=== PATIENT | female | born 2005 | race Caucasian/White ===

== ENCOUNTER 2025-07-31 09:04 | Outpatient (CLI) | payer BC, SELFPAY ==
[2025-07-31 09:43] LABS: Hematocrit 42.1 % (37.0-47.0); Hemoglobin 14.2 g/dL (12.0-15.0)
--- OUTSIDE RECORDS SUMMARY | 2025-07-31 09:43 | XMS_ITS | Encounter Summary ---
Author Organization [facility] Address [address] [place] [address] Care Team Providers Care Rag Room Supervisor Name Role Phone Yunier Mei MD Primary Care Provider [phone] Encounter Details Date Type Department Care Team (Late st Contact Info) Description 07/27/2023 Breakout [employer] Message Enc [facility] Family Medicine - [place] [address] [facility], [address] [place] [address] [place], [facility] Provider Pediatric Covid Vaccine Recommendation Social History Tobacco Use Types Packs/Day Years Used Date Smoking Tobacco: Never Smokeless Tobacco: Never Alcohol Use Standard Drinks/Week Comments Never 0 (1 standard drink = 0.6 oz pur e alcohol) AUDIT-C Answer Date Recorded Q1: How often do you have a drink containing alc ohol? Never 12/10/2020 Average Number of Drinks Not on file 021 Frequency of Binge Drinking Not on file 0402/2021 PHQ-2 Answer Date Recorded Patient Health Questionnaire-2 Score 0 03/16/2023 Comments No Sex and Gender Information Value Date Recorded Sex Assigned at Not on file Legal Sex Female 11:12 PM CDT Gender Identity Not on file Sexual Orientation Not on file documented as of this encounter Plan of Treatment Not on file documented as of this encounter Visit Diagnoses Not on filedocumented in this encounter Additional Health Concerns Assessment Noted Time PHQ-9 Depression Total Score: 0 11/06/19 22 8:03 AM SPECIAL SERVICES COORDINATOR documented as of this encounter Care Teams Rag Room Supervisor Relationship Specialty Start Date End Date Yunier Mei MD [address] [facility] [address] [place], [place] [address] PCP - General FAMILY PRACTICE 03/16/23 documented as of this encounter
--- OUTSIDE RECORDS SUMMARY | 2025-07-31 09:43 | XMS_ITS | Continuity of Care Document ---
Author Organization [facility], [facility] Address [address] [place] [address] Care Team Providers Care Correctional Agency Director Name Role Phone [facility] Primary Care Provider [phone] Assessment No assessment recorded. Plan of Treatment Reminders Order Date Submit Date Provider Last Modified By Organization Details Last Modified Time Details Appointments SURG Diagnosti c Lap 2024 07:30A Kat SPENCER MD Not available Not available Not available SURG POST OP 2024 09:30A Kat SPENCER MD Not available Not available Not available Lab None recorded. Referral None recorded. Procedures None recorded. Surgeries laparosco py, diagnosti c (SURG) 2024 025 [email or web address] [facility], [facility] [address], [address], 06/18/2025 11:14:07 Imaging None recorded. Medication Orders None recorded. Patient TargetsNo targets recorded. Patient InstructionsNo instructions recorded. Reason for Referral None Reported. Results Created Date Observation Date Name Description Value Unit Range Abnormal Flag Note LastModifiedBy Organization Detail LastModifiedTime 06/18/2004/23/2025 US, piper s No observ ation record ed. [email or web address] Not Available 2024 10:13:13 06/18/2004/23/2025 piper KRISHNAN s No observ ation record ed. [email or web address] Not Available 2024 10:14:26 Result Notes None recorded. Problems Name Problem SNOMED Code Status Onset Date Resolution Date Notes Provider Name and Address Organization Details Recorded Time Migraine without aura [id number] Active 022 Nan Ku MD [address], [place], [address], [facility] 2 21:09:01 Problem Notes None recorded. Procedures Surgical History Date Name Laterality Status Provider Name and Address Organization Details Recorded Time 3 IUD Insertion completed ASHLEY Llamas [address], [place], [address], [facility] 09/03/2023 12:28:03 3 Nexplanon Removal completed ASHLEY Llamas [address], [place], [address], [facility] 09/03/2023 12:27:53 3 Nexplanon Insert completed ASHLEY Llamas [address], [place], [address], [facility] 09/09/2022 12:13:42 Imaging Results None recorded. Procedure Notes None recorded. Medical Equipment None Reported. Allergies No known drug allergies Medications Name Sig Start Date Stop Date Status Note LastModified by Organization Details LastModified Time Mirena 21 mcg/24 hr (up to 8 years) 52 mg intrauterin e device Take 1 device by intrauter ine route. 2022 active Not Available Not Available Not Avai lable clindamycin HCl 300 mg capsule TAKE 1 CAPSULE BY MOUTH THREE TIMES A DAY 08/24 completed Not Available Not Available Not Available fluconazole 150 mg tablet TAKE 1 TABLET BY MOUTH NOW, REPEAT IN 7 DAYS 06/18 completed Not Available Not Available Not Available benzonatate 200 mg capsule TAKE 1 CAPSULE BY MOUTH 3 TIMES A DAY UNTIL DIRECTED TO STOP NEEDED. FOR PERSISTEN T COUGH 08/23 completed Not Available Not Available Not Available metronidazo le 500 mg tablet TAKE 1 TABLET BY MOUTH EVERY 12 HOURS FOR 7 DAYS 06/18 completed Not Available Not Available Not Available ofloxacin 0.3 % ear drops INSTILL 4 DROPS IN RIGHT EAR TWICE A DAY X 7 DAYS 08/24 completed Not Available Not Available Not Available benzonatate 100 mg capsule TAKE 1 CAPSULE BY MOUTH 3 TIMES A DAY NEEDED FOR COUGH INSTRUCTE D UNTIL DIRECTED TO STOP 08/23 completed Not Available Not Available Not Available albuterol sulfate HFA 90 mcg/actuati on aerosol inhaler PLEASE SEE ATTACHED FOR DETAILED DIRECTION S 06/18 completed Not Available Not Available Not Available nitrofurant oin monohydrate /macrocryst als 100 mg capsule TAKE 1 CAPSULE BY MOUTH EVERY 12 HOURS FOR 7 DAYS 06/18 completed Not Available Not Available Not Available Lo Loestrin Fe 1 mg-10 mcg (24)/10 mcg (2) tablet Take 1 tablet every day by oral route. 09/09 completed Not Available Not Available Not Available Nexplanon 68 mg subdermal implant Inject 1 implant by subcutane ous route. 06/18 completed Not Available Not Available Not Available Blisovi 24 Fe 1 mg-20 mcg (24)/75 mg (4) tablet Take 1 tablet every day by oral route. active Not Available Not Available No t Available Vitals Date Recorded Body height Body mass index (BMI) Body mass index (BMI) [Percentile] Per age and sex Body weight Systolic And Diastolic Provider Name and Address Organization Details Last Updated DateTime 06/18/2025 152.4 cm 30.1 kg/m2 93 % 01722.2 2 g 132/73 mm[Hg] Smita Pereira [facility] 10:06:42 Social History Question Answer Notes LastModified by Organizat ion Details LastModified Time Tobacco Smoking Status Never Smoker Bethanie Castrejonboris fowler, [facility] 09/03/2023 11:47:59 Are You Blind Or Do You Have Difficulty Seeing? No Information n ot available 08/23/2023 What Is Your Level Of Caffeine Consumption? Occasional [email or web address] Information not available 08/23/2023 In The 14 Days Before Symptom Onset, Have You Had Close Contact With A Laboratory-confirm ed COVID-19 While That Case Was Ill? No [email or web address] Information n ot available 08/23/2023 In The 14 Days Before Symptom Onset, Have You Had Close Contact With A Person Who Is Under Investigation For COVID-19 While That Person Was Ill? No Information not available 08/23/2023 Have You Been To An Area Known To Be High Risk For COVID-19? No [email or web address] Information not available 08/23/2023 Are You Deaf Or Do You Have Serious Difficulty Hearing? No [email or web address] Information not available 08/23/2023 What Type Of Diet Are You Following? REGULAR [email or web address] Information n ot available 08/23/2023 What Is The Highest Grade Or Level Of School You Have Completed Or The Highest Degree You Have Received? VE72830-5 [email or web address] Information not available 08/23/2023 Are There Any Guns Present In Your Home? No [email or web address] Information not available 08/23/2023 Do You Use Protection During Sex? Usually [email or web address] Information not available 08/23/2023 Do You Use Your Seat Belt Or Car Seat Routinely? No [email or web address] Information not available 08/23/2023 Do You Have Smoke And Carbon Monoxide Detectors In Your Home? No [email or web address] Information not available 08/23/2023 Do You Use Sunscreen Routinely? Yes [email or web address] Information not available 08/23/2023 Has Tobacco Cessation Counseling Been Provided? No [email or web address] Information not available 09/03/2023 Have You Used IV Drugs? No [email or web address] Information not available 08/23/2023 Sex: Unknown Functional Status Question Answer Note LastModified by Organizat ion Details LastModified Time Do you use any illicit or recreational drugs? No Information not available 08/24/2022 Do you or have you ever used any other forms of tobacco or nicotine? No Information not available 09/03/2023 What is your level of alcohol consumption? None Information not available 08/24/2022 What is your exercise level? Heavy [email or web address] Information not available 08/23/2023 Mental Status None recorded. Family History Relationship Description Onset Age of this Age Resolved Age Notes LastModified by Organization Details LastModified Time Father No current problems or disability [email or web address] Not available 06/18 10:08:17 Mother No current problems or disability [email or web address] Not available 06/18 10:08:17 Medical History Condition Response Allergies (Food, seasonal, environmental ) Y Other N Breast Cancer N Drug/Latex Allergies/Reactions N Blood Transfusion N Dermatologic Disorders N Lung Disease N Defects or Inherited Disease N Breast Problem N Gestational Diabetes N Hematologic disorders N Anesthesia Complications N History of STI N Deep Vein Thrombosis N Polycystic ovary syndrome N Anxiety Disorder N Autoimmune disease N Arthritis N Infertility N Polyps N Acid Reflux (GERD) N History of abnormal pap N Cancer N Stroke N Varicosities N Neurologic/Epilepsy N Endometriosis N High Cholesterol N Headaches Y Fibromyalgia N Kidney Disease N Heart Problems N Kidney or Bladder Problems N Thyroid Problems N GI Problems N Eating Disorder N Anemia N Art (IVF or FET) N Psychiatric Illness N Ovarian Cancer N Diabetes N Pulmonary (TB, Asthma) N Hepatitis/Liver Disease N No Past Medical History Y Eczema N Urinary Tract Infection N Abuse/Domestic Violence N Asthma Y Trauma/Violence N Depression/ depression N Heart Disease N Pre-Eclampsia N Hypertension N Osteoporosis N Thrombophilias N Gynecological History Statement/Question Response Flow Heavy Date of Last Mammogram Date of LMP 06/06/2025 Was last menstrual period normal Y STIs/STDs N HPV Vaccine Y Duration of Flow (days) 7 Current Control Method IUD Are cycles usually normal N Frequency of Cycle (Q days) Sexually Active? Y Menses Monthly Y Date of DEXA bone scan Age of first menstrual cycle 12 Date of Last Pap Smear Sexual Problems? Y Desired Control Method BCPs LMP Approximate Obstetrics History GPAL:G 0 P 0 0 0 0 Past Encounters Encounter ID Performer Location Encounter Start Date Encounter Closed Date Diagnosis/Indication Diagnosis SNOMED-CT Code Diagnosis ICD10 Code Diagnosis IMO Codes Diagnosis Note [id number] Amandeep Spencer MD [place] [address] [address] 06/18/2025 09:42:47 06/18/2025 13:03:14 Pain in pelvis 91717599 R10.20 10313 This patient is a 20-year-ol d female with pelvic pain and menorrhagi a. She also has some abnormal uterine bleeding. Patient has been on oral contracept aria pills for a prolonged period of time. She discontinu ed those and had an IUD placed. Six months after IUD placement she began having irregular heavy bright red bleeding. She was then started on a low-dose oral contracept aria pills. She now is taking low-dose oral contracept aria pills and has IUD inserted. she has severe pelvic pain. It is sharp. It is located within the pelvis. It does not radiate. It is worse with intercours e. Nothing is palliative . It has become worse over time. It started when she was in her early teens. It was originally just at the time of menses and now is more frequent throughout the menstrual cycle. Spite oral contracept aria pills and IUD the patient has severe menorrhagi a. It may be due to the prolonged use of the IUD. We discussed treatment of pelvic pain and menorrhagi a and abnormal uterine bleeding. I spent over 30 minutes on the patient's care. We are mercedez tolbert discontinu ing all of her contracept ion and observing her menstrual cycle. She has failed medical treatment for the treatment of her pelvic pain. We agreed to move forward with a diagnostic laparoscop y. The patient understand s the procedure. The procedure was described to the patient in great detail. the patient also understand s the risks. The risks were also explained in detail. She understand s that injuries May occur during surgery. She understand s these injuries can result in hospitaliz ation, more surgery, and severe illness. She understand s there is risk of hemorrhage and infection. Abnormal u terine bleeding [id number] 9100 N93.9 [id number] Menometrorrhagia 1130142 08 N92.1 [id number] Health Concerns Section Related Observation LastModified by Organization Detai ls LastModified Time None Recorded Concern Status LastModified by Organization Details LastModified Time None Recorded Payers Encounter Date Sequence Insurance Name Policy Number Policy Dougherty Covered Member ID Dougherty Member ID Guarantor Name 06/18/2025 1 [employer] [id number] Jan Hammonds [id number] Jan Hammonds Notes Date Note Type Note Provider Name and Address Organization Details Recorded Time 06/18/2025 text/html Beer-Pelvic PainReported by Patient This patient is a 20-year-old female with pelvic pain and menorrhagia. She also has some abnormal uterine bleeding. Patient has been on oral contraceptive pills for a prolonged period of time. She discontinued those and had an IUD placed. Six months after IUD placement she began having irregular heavy bright red bleeding. She was then started on a low-dose oral contraceptive pills. She now is taking low-dose oral contraceptive pills and has IUD inserted. she has severe pelvic pain. It is sharp. It is located within the pelvis. It does not radiate. It is worse with intercourse. Nothing is palliative. It has become worse over time. It started when she was in her early teens. It was originally just at the time of menses and now is more frequent throughout the menstrual cycle. Spite oral contraceptive pills and IUD the patient has severe menorrhagia. It may be due to the prolonged use of the IUD. We discussed treatment of pelvic pain and menorrhagia and abnormal uterine bleeding. I spent over 30 minutes on the patient's care. We are considering discontinuing all of her contraception and observing her menstrual cycle. She has failed medical treatment for the treatment of her pelvic pain. We agreed to move forward with a diagnostic laparoscopy. The patient understands the procedure. The procedure was described to the patient in great detail. the patient also understands the risks. The risks were also explained in detail. She understands that injuries May occur during surgery. She understands these injuries can result in hospitalization, more surgery, and severe illness. She understands there is risk of hemorrhage and infection. Amandeep Spencer MD [address], [place], [address], [place] - [facility] 06/18/2025 13:03:06 OBGyn Episode No OBEpisode recorded.
--- OUTSIDE RECORDS SUMMARY | 2025-07-31 09:43 | XMS_ITS | Clinical Summary ---
Author Organization [facility] Address [facility] [place] [address] Care Team Providers Care Game Programer Name Role Phone Yunier Mei MD Primary Care Provider [phone] Allergies No known active allergies Medications fluticasone propionate (FLONASE) 50 MCG/ACT nasal sprayIndication s:Recurrent acute suppurative otitis media without spontaneous rupture of left tympanic membrane 1 spray by Nasal route daily. 16 g 3 4 Active levonorgestrel (MIRENA, 52 MG,) 20 MCG/DAY IUD 1 Intra Uterine Device (20 mcg total) by Intrauterine route once. 3 Active Active Problems No known active problems Resolved Problems Problem Noted Date Diagnosed Date Resolved Date Closed fracture of distal end of radius 06/19/2011 03/04/2023 Immunizations Immunization Administration Dates Next Due Daptacel 02/14/2010,05/17/2006 HPV GARDASIL 9-VALENT 02/20/2020,06/16/2019 Hepatitis A (Generic) 04/08/2012,02/09/2007 Hepatitis B 2005 Hib (Generic) 02/04/2006, 5,2005,04/20 IPV/OPV 02/14/2010 Influenza Adult (Generic) 07/21/2022,07/2021,05/30/2020,06/16 MMR 02/14/2010,02/04/2006 Menactra 03/23/2016 Meningococcal (Menactra) 02/21/2021 PFIZER COVID-19 (ORIGINAL FO RMULATION, PURPLE CAP) mRNA, LNP-S, PF, 30 MCG/0.3 ML DOSE 09/20/2021,02/10/2021,01/20/2021 Pediarix 2005,2005,2005 Pneumococcal (Prevnar 13) 05/17/2006,,2005,04/20 Tdap (Generic) 03/23/2016 Varicella Vaccine 02/14/2010,05/17/2006 Family History Relation Status Comments Father Alive Mother Alive Social History Tobacco Use Types Packs/Day Years Used Date Smoking Tobacco: Never Smokeless Tobacco: Never Tobacco Cessation:Counseling Given: No Alcohol Use Standard Drinks/Week Comments Never 0 (1 standard drink = 0.6 oz pur e alcohol) AUDIT-C Answer Date Recorded Q1: How often do you have a drink containing alc ohol? Never 12/10/2020 Average Number of Drinks Not on file 021 Frequency of Binge Drinking Not on file 02/2021 PHQ-2 Answer Date Recorded Patient Health Questionnaire-2 Score 0 09/14/2023 Comments No Sex and Gender Information Value Date Recorded Sex Assigned at Not on file Legal Sex Female 11:12 PM CDT Gender Identity Not on file Sexual Orientation Not on file Last Filed Vital Signs Vital Sign Reading Time Taken Comments Blood Pressure 110/80 09/14/2023 3:10 PM SEWER SYSTEM SUPERVISOR Pulse 74 09/14/2023 3:10 PM SEWER SYSTEM SUPERVISOR Temperature 36.9 C (98.5 F) 09/14/2023 3:10 PM SEWER SYSTEM SUPERVISOR Respiratory Rate 18 09/14/2023 3:10 PM SEWER SYSTEM SUPERVISOR Oxygen Saturation 98% 09/14/2023 3:10 PM SEWER SYSTEM SUPERVISOR Inhaled Oxygen Concentration - - Weight 62.3 kg (137 lb 4.8 oz) 09/14/2023 3:10 P M SEWER SYSTEM SUPERVISOR Height 153.7 cm (5' 0.5) 03/16/2023 8:33 AM CDT Body Mass Index 26.37 03/16/2023 8:33 AM CDT Plan of Treatment Health Maintenance Due Date Last Done Comments Meningococcal B Vaccine (1 of 2 - Standard) 2021 Hepatitis C 2023 Annual Physical 03/16/2024 03/16/2023 PHQ-2 (Physician Korbel) 09/06/2024 09/14/2023 COVID-19 Vaccine ( season) 2025 09/20/2021, 02/10/2021, 01/20/2021 Influenza Adult (#1) 2025 07/21/2022, 07/17/2021, 05/30/2020, Additional history exists DTaP, Tdap and Td Vaccines (7 - Td or Tdap) 03/23/2026 03/23/2016, 02/14/2010, 05/17/2006, Additional history exists Hepatitis B Vaccines Completed 2005, 2005, 2005, Additional history exists Pneumococcal Vaccine: Pediatrics (0 to 5 Years) and At-Risk Patients (6 to 49 Years) Completed 05/17/2006, 2005, 2005, Additional history exists Hepatitis A Vaccines Completed 04/08/2012, 02/10/20 07 HPV Vaccines Completed 02/20/2020, 06/16/2019 Meningococcal Vaccine Completed 02/21/2021, 016 RSV Immunizations Under 20 Months Aged Out No longer eligible based on patient's age to complete this topic Insurance [employer] [facility] [facility] Care Teams Game Programer Relationship Specialty Start Date End Date Yunier Mei MD [address] [facility] [address] [place] [address] PCP - General FAMILY PRACTICE 03/16/23
--- OUTSIDE RECORDS SUMMARY | 2025-07-31 09:43 | XMS_ITS | Encounter Summary ---
Author Organization [facility] Address [address] [place] [address] Care Team Providers Care Leather Goods Sales Representative Name Role Phone Unavailable Primary Care Provider Unavailabl e Encounter Details Date Type Department Care Team (Late st Contact Info) Description 2005 Outpatient [facility] Hearing Services [facility] [address] [place] [address] Korina Reid AU.D [address] [place] [address] Social History Tobacco Use Types Packs/Day Years Used Date Smoking Tobacco: Never Assessed Comments Unknown Sex and Gender Information Value Date Recorded Sex Assigned at Not on file Legal Sex Female 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
--- OUTSIDE RECORDS SUMMARY | 2025-07-31 09:43 | XMS_ITS | Encounter Summary ---
Author Organization [facility] Address [address] [place] [address] Care Team Providers Care Customer Service Advisor Name Role Phone Unavailable Primary Care Provider Unavailabl e Encounter Details Date Type Department Care Team (Late st Contact Info) Description 2005 Outpatient Historical [facility] Pediatrics - [facility] [address] [address] Carine Crenshaw MD 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
--- OUTSIDE RECORDS SUMMARY | 2025-07-31 09:43 | XMS_ITS | Encounter Summary ---
Author Organization [facility] Address [address] 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 Gender Identity Not on file Sexual Orientation Not on file documented as of this encounter Plan of Treatment Upcoming Encounters Date Type Department Care Team (Late st Contact Info) Description 08/15/2025 9:00 AM PIPED BUTTONHOLE MACHINE OPERATOR Confidential [facility] Behavioral Health [facility] [address] [place] [address] Peyton Garsia, VOCATIONAL NURSING INSTRUCTOR [address] [place] [phone] documented as of this encounter Visit Diagnoses Diagnosis Single liveborn, born in hospital, delivered without mention of delivery- Primary documented in this encounter
--- OUTSIDE RECORDS SUMMARY | 2025-07-31 09:43 | XMS_ITS | Encounter Summary ---
Author Organization [facility] Address [address] [place] [address] Care Team Providers Care Cutter Gas Name Role Phone Unavailable Primary Care Provider Unavailabl e Encounter Details Date Type Department Care Team (Late st Contact Info) Description 2005 Outpatient Historical [facility] Pediatrics - [facility] [address] [facility] [address] [address] Gerald Mcpherson MD NO ADDRESS ON FILE Social History Tobacco Use Types Packs/Day Years Used Date Smoking Tobacco: Never Assessed Comments Unknown Sex and Gender Information Value Date Recorded Sex Assigned at Not on file 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
--- OUTSIDE RECORDS SUMMARY | 2025-07-31 09:44 | XMS_ITS | Clinical Summary ---
Author Organization [facility] Address [address] [place] [address] Care Team Providers Care Mice Raiser Name Role Phone Unavailable Primary Care Provider Unavailabl e Allergies No known active allergies Medications levonorgestreL (Mirena) 21 mcg/24hr (up to 8 yrs) 52 mg IUD 20 mcg by Intrauterine route. 3 Active norethindrn a-e estradiol-iron (Junel FE 09/25, 28,) 1 mg-20 mcg (21)/75 mg (7) tablet Take 1 Tablet by mouth daily. 28 Tablet 12 5 Active Additional Information Patient not taking.Reported on 06/27/2025 hydrOXYzine HCL (ATARAX) 10 mg tabletIndication s:Generalized anxiety disorder,Sleep difficulties Take 1-2 tablets by mouth daily at bedtime as needed for sleep 60 Tablet 1 5 Active Active Problems Problem Noted Date Diagnosed Date Chronic pelvic pain in female 04/24/2025 Irregular menses 04/24/2025 IUD (intrauterine device) in place 04/24/2025 Encounters Date Type Department Care Team Description 06/27/2025 9:00 AM CDT Confidential [facility] Behavioral Health [facility] [address] [place] [address] Peyton Garsia APRN None 06/26/2025 External Device Data STL ABSTRACTION Provider, Abstract 06/26/2025 Telephone [facility] [address] [facility] [address] [place] [address] Kim Martinez MD Surgery 05/30/2025 8:00 AM CDT Confidential [facility] Health [facility] [address] [place] [address] Peyton Garsia APRN None 05/23/2025 Telephone [facility] [place] [address] [place] [address] Surekha Guerra PA laparoscoopy procedure/GARA 05/22/2025 External Device Data STL ABSTRACTION Provider, Abstract from Last 3 Months Family History Medical History Relation Name Comments Breast Cancer Neg Hx Ovarian Cancer Neg Hx Social History Tobacco Use Types Packs/Day Years Used Date Smoking Tobacco: Never Smokeless Tobacco: Never Tobacco Cessation:Counseling Given: Not Answered Alcohol Use Standard Drinks/Week Comments Never 0 (1 standard drink = 0.6 oz pur e alcohol) Feeling Safe Answer Date Recorded Do you worry about feeling s afe and happy with the people in your life? No 04/24/2025 Food Insecurity Answer Date Recorded Do you find you are eating l ess than you should because you can t pay for food? No 04/24/2025 Transportation Needs Answer Date Record ed Have you gone without health care because you didn t have a way to get there? Or worry about transportation for future doctor visits, brass pickler medication, etc.? No 2024 Housing Stability Answer Date Recorded Do you worry you won t have a steady place to sleep or struggle to pay rent or mortgage? No 04/24/2025 Utility Needs Answer Date Recorded Do you have difficulty payin g for utility costs (electric, water or gas bills)? No 04/24/2025 Medication Needs Answer Date Recorded Have you skipped taking medi cation due to cost or worry you can t afford new medications? 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 Gender Identity Not on file Sexual Orientation Not on file Last Filed Vital Signs Vital Sign Reading Time Taken Comments Blood Pressure 124/76 04/24/2025 7:59 AM CDT Pulse 66 12/18/2024 10:33 AM CDT Temperature - - Respiratory Rate - - Oxygen Saturation - - Inhaled Oxygen Concentration - - Weight 67.1 kg (148 lb) 04/24/2025 7:59 AM CDT Height 152.4 cm (5') 04/24/2025 7:59 AM CDT Body Mass Index 28.9 04/24/2025 7:59 AM CDT Plan of Treatment Upcoming Encounters Date Type Department Care Team (Late st Contact Info) Description 08/15/2025 9:00 AM UNDERTAKER ASSISTANT Confidential [facility] Health [facility] [address] [place] [address] Peyton Garsia, SUKH [address] [place] [phone] Health Maintenance Due Date Last Done Comments INFLUENZA VACCINE (#1) 2025 COVID-19 Vaccine ( - 2024-2 6 season) 2025 09/20/2021, 02/10/2021, 01/20/2021 DTAP/TDAP/TD VACCINES (7 - T d or Tdap) 03/23/2026 03/23/2016, 02/14/2010, 05/17/2006, Additional history exists CHLAMYDIA SCREENING (ANNUAL) 11-24 YEARS 04/24/2026 04/24/2025 HEPATITIS B VACCINES Completed 2005, 2005, 2005, Additional history exists HPV VACCINES Completed 02/20/2020, 06/16/2019 Procedures Procedure Name Priority Date/Time Associated Diagnosis Comments VAGINOSIS/VAGINITIS PANEL PLUS Routine 04/24/2025 1:38 PM CDT Encounter for screening for other bacterial disease from Last 3 Months or Most Recently Relevant to Health Maintenance Results * VAGINOSIS/VAGINITIS PANEL PLUS (04/24/2025 1:38 PM CDT) BACTERIAL VAGINOSIS NEGATIVE NEGATIVE [facility] MARILYN SPECIES NOT DETECTED NOT DETECTED [facility] MARILYN GLABRATA NOT DETECTED NOT DETECTED [facility] Comment: Marilyn species C. albicans, C. tropicalis, C. parapsilosis, and/or C. dubliniensis can be detected, but not differentiated, in the Marilyn spp. result. TRICHOMONAS VAGINALIS (TV), TMA NOT DETECTED NOT DETECTED [facility] CHLAMYDIA TRACHOMATIS RNA, TMA, UROGENITAL NOT DETECTED NOT DETECTED [facility] NEISSERIA GONORRHOEAE RNA, TMA, UROGENITAL NOT DETECTED NOT DETECTED [facility] Comment: For additional information, please refer to https://education.Snipd/faq/ZBM313 (This link is being provided for information/ educational purposes only.) Test Performed at: [facility] [id number] [id number] Mac Bradley MD Genital SPECIMEN FROM VAGINA / Unknown 04/24/2025 1:38 PM CDT 04/24/2025 6:24 PM CDT Sure[facility]CRO[facility] - GENERAL ORDERABL ES Final Result [facility] [phone] [facility] [id number] [address] [id number] from Last 3 Months or Most Recently Relevant to Health Maintenance Insurance [facility] BLUE ACCESS CHOICE
--- OUTSIDE RECORDS SUMMARY | 2025-07-31 09:44 | XMS_ITS | Data Portability ---
Author Organization [facility] Address [address] [place] [address] [place] [address] Care Team Providers Care Senior Qa Analyst Name Role Phone A-[facility] PED[facility] Primary Care Provider [phone] Assessment Encounter Date Assessment Date Assessment LastModified by Organization Details LastModified Time 08/24/2022 08/24/2022 Has had HPV vaccine Discussed abstinence, safe sex, contraception, STDs, and . Discussed various forms of contraception including their usage, and risks, benefits, and alternatives. Pt desires nexplanon. Discussed R/B/A of Nexplanon, including procedure for insertion and removal, efficacy, and bleeding profile associated with it. Questions answered. insertion when next on placebo pills. GC CT trich on urine today. [email or web address] Not available 09/04/2022 21:13:36 Plan of Treatment Reminders Order Date Submit Date Provider Last Modified By Organization Details Last Modified Time Details Appointments SURG Diagnos tic Lap 2024 07:30A Kat CASTELLANOS MD Not available Not available Not available SURG POST OP 2024 09:30A Kat CASTELLANOS MD Not available Not available Not available Lab pregnan cy test, urine 2022 023 [email or web address] [facility], [address], [address], [place], [address], 09/03/2023 13:31:15 urinaly sis, dipstic k 2022 023 [email or web address] [address], [address], [place], [address], 08/23/2023 16:17:05 culture , urine 2022 023 [facility] (Lab), [address], [place], [address], 08/26/2023 09:15:41 pregnan cy test, urine 2022 023 [email or web address] [address], [address], [place], [address], 08/23/2023 16:15:41 pregnan cy test, urine 2022 023 [email or web address] [address], [address], [place], [address], 09/09/2022 12:29:09 Referral None recorde d. Procedures None recorde d. Surgeries laparos copy, diagnos tic (SURG) [email or web address] [facility], [address], [place], [address], 06/18/2025 11:14:07 Imaging None recorde d. Medication Orders Mirena 21 mcg/24 hr (up to 8 years) 52 mg intraut erine device 2022 023 [email or web address] [id number], [address], [place], [address], 09/03/2023 13:33:07 metroni dazole 500 mg tablet 2022 023 [email or web address] [id number], [address], [place], [address], 06/18/2025 10:04:44 Nexplan on 68 mg subderm al implant 2022 023 [email or web address] Not available 06/18/2025 10:04:06 Patient TargetsNo targets recorded. Patient Instructions Encounter Date Encounter Id Patient Instructions Last Modified By Organization Details Last Modified Time 09/03/2023 [id number] surgical trays* RASHEED Not available 09/03/2024 05:01:13 Reason for Referral None Reported. Results Created Date Observation Date Name Description Value Unit Range Abnormal Flag Note LastModifiedBy Organization Detail LastModifiedTime 08/24/20 22 08/24/2022 CT/GC AND TRICH OMONA S VAGIN ARACELI (RRNA ), URINE chlamydia trachomatis, PCR Negati ve negati ve Not Available [facility] (Lab) [address], [place], [address], 08/25/2022 13:23:37 08/24/20 22 08/24/2022 CT/GC AND TRICH OMONA S VAGIN ARACELI (RRNA ), URINE neisseria gonorrhoeae, PCR Negati ve negati ve Not Available [facility] (Lab) [address], [place], [address], 08/25/2022 13:23:37 08/24/20 22 08/24/2022 CT/GC AND TRICH OMONA S VAGIN ARACELI (RRNA ), URINE trichomonas vaginalis ribosomal RNA (rrna) Negati ve negati ve Not Available [facility] (Lab) [address], [place], [address], 08/25/2022 13:23:37 09/09/19 23 09/09/2022 pregn diandra test, urine HCG negati ve Not Available [place] [address], [place], [address], 09/09/2022 12:28:44 08/23/20 23 08/23/2023 CT/GC (DARSHAN) , SWAB chlamydia trachomatis, PCR Negati ve negati ve Not Available [facility] (Lab) [address] [place], [address], 08/24/2023 13:51:15 08/23/20 23 08/23/2023 CT/GC (DARSHAN) , SWAB neisseria gonorrhoeae, PCR Negati ve negati ve Not Available [facility] (Lab) [address], [place], [address], 08/24/2023 13:51:15 08/23/20 23 08/23/2023 VAGIN ITIS/ VAGIN OSIS, DNA PROBE afia sp. detection, direct probe Positi ve negati ve abnormal Not Available [facility] (Lab) [address] [place], [address], 08/24/2023 13:51:16 08/23/20 23 08/23/2023 VAGIN ITIS/ VAGIN OSIS, DNA PROBE gardnerella vag. detection, direct probe Positi ve negati ve abnormal Not Available [facility] (Lab) [address], [place], [address], 08/24/2023 13:51:16 08/23/20 23 08/23/2023 VAGIN ITIS/ VAGIN OSIS, DNA PROBE trichomonas vag. detection, direct probe Negati ve negati ve Not Available [facility] (Lab) [address], [place], [address], 08/24/2023 13:51:16 08/23/20 23 08/23/2023 CULTU RE: URINE result report SEE RESULT S BELOW abnormal Test: Cultu re: Urine Speci men Sourc e: Urine Voide d Speci men Type: Urine Speci men Date: 08/23 5:07 PM Resul t Date: 08/26 8:12 AM Resul t Statu s: Final resul t Abnor mal: Yes Loretta mata Lab: [facility] [address] [facility] [address] Tel: CULTU RE ----- ----- ----- --- >100, 000 CFU/m l Esche eber a coli (Abno rmal) ALLISON PTIBI LITY ----- ----- ----- --- Esche eber a coli METHO D BRUCE ----- ----- ----- ----- ----- ---- ----- ----- ----- ----- ----- - AMPIC ILLIN >16 ug/mL Resis tant AMPIC ILLIN /SULB ACTAM 16 ug/mL Inter media te AZTRE ONAM <=4 ug/mL Susce ptibl e CEFAZ MAEGAN <=2 ug/mL Susce ptibl e CEFEP JAMAAL <=2 ug/mL Susce ptibl e CEFOX ITIN <=8 ug/mL Susce ptibl e CEFTA ZIDIM E <=1 ug/mL Susce ptibl e CEFTR IAXON E <=1 ug/mL Susce ptibl e CIPRO FLOXA TYRELL <=0.2 5 ug/mL Susce ptibl e GENTA MICIN <=2 ug/mL Susce ptibl e LEVOF LOXAC IN <=0.5 ug/mL Susce ptibl e MEROP ENEM <=1 ug/mL Susce ptibl e NITRO FURAN TOIN <=32 ug/mL Susce ptibl e PIPER ACILL IN/TA ZOBAC ROGER <=8 ug/mL Susce ptibl e TOBRA MYCIN 4 ug/mL Susce ptibl e TRIME THOPR IM/RESENDIZ LFAME THOXA ZOLE <=0.5 ug/mL Susce ptibl e Not Available [facility] (Lab) [address], [place], [address], 08/26/2023 09:15:41 08/23/20 23 08/23/2023 urina lysis , dipst ick Leukocytes +3 Not Available [facility] vasiliy [address], [place], [address], 08/23/2023 16:16:07 08/23/20 23 08/23/2023 urina lysis , dipst ick Nitrite normal Not Available [facility] [address], [place], [address], 08/23/2023 16:16:07 08/23/20 23 08/23/2023 urina lysis , dipst ick Urobilinogen normal Not Available [facility] lalitha [address], [place], [address], 08/23/2023 16:16:07 08/23/20 23 08/23/2023 urina lysis , dipst ick Protein trace Not Available [facility] [address], [place], [address], 08/23/2023 16:16:07 08/23/20 23 08/23/2023 urina lysis , dipst ick pH 8 Not Available [facility] [address], [place], [address], 08/23/2023 16:16:07 08/23/20 23 08/23/2023 urina lysis , dipst ick Blood trace Not Available [facility] [address], [place], [address], 08/23/2023 16:16:07 08/23/20 23 08/23/2023 urina lysis , dipst ick Specific Lannon 1.005 Not Available [facility] jenni [address], [place], [address], 08/23/2023 16:16:07 08/23/20 23 08/23/2023 urina lysis , dipst ick Ketone normal Not Available [facility] [address], [place], [address], 08/23/2023 16:16:07 08/23/20 23 08/23/2023 urina lysis , dipst ick Bilirubin normal Not Available [facility] [address], [place], [address], 08/23/2023 16:16:07 08/23/20 23 08/23/2023 urina lysis , dipst ick Glucose normal Not Available [facility] [address], [place], [address], 08/23/2023 16:16:07 08/23/20 23 08/23/2023 urina lysis , dipst ick Appearance normal Not Available [facility] vasiliy [address], [place], [address], 08/23/2023 16:16:07 08/23/20 23 08/23/2023 urina lysis , dipst ick Color normal Not Available [facility] [address], [place], [address], 08/23/2023 16:16:07 08/23/20 23 08/23/2023 pregn diandra test, urine HCG negati ve Not Available [facility] [address], [place], [address], 08/23/2023 16:15:06 09/03/20 23 09/03/2023 pregn diandra test, urine HCG negati ve Not Available [facility] [address], [place], [address], 09/03/2023 13:31:06 06/18/20 25 04/23/2025 , pelvi s No observ ation record ed. [email or web address] Not Available 2024 10:13:13 06/18/20 25 04/23/2025 US, pelvi s No observ ation record ed. [email or web address] Not Available 2024 10:14:26 Result Notes None recorded. Problems Name Problem SNOMED Code Status Onset Date Resolution Date Notes Provider Name and Address Organization Details Recorded Time Migraine without aura 13680204 Active 022 Nan Ku MD [address], [place], [address], [facility] 2 21:09:01 Problem Notes None recorded. Procedures Surgical History Date Name Laterality Status Provider Name and Address Organization Details Recorded Time 3 IUD Insertion completed ASHLEY Llamas [address], [place], [address], [facility] 09/03/2023 12:28:03 3 Nexplanon Removal completed ASHLEY Llamas [address], [place], [address], [facility] 09/03/2023 12:27:53 3 Nexplanon Insert completed ASHLEY Llamas [address], [place], [address], [facility] 09/09/2022 12:13:42 Imaging Results None recorded. [...] and Address Organization Details Last Updated DateTime 152.4 cm 25 kg/m2 83 % 69709.8 2 g 124/72 mm[Hg] Lily Taveras [facility] 3 12:08:45 Date Recorded Body height Body mass index (BMI) Body mass index (BMI) [Percentile] Per age and sex Body weight Systolic And Diastolic Provider Name and Address Organization Details Last Updated DateTime 06/18/2025 152.4 cm 30.1 kg/m2 93 % 79301.2 2 g 132/73 mm[Hg] Smita Pereira [facility] 5 10:06:42 Date Recorded Body height Body mass index (BMI) Body mass index (BMI) [Percentile] Per age and sex Body weight Systolic And Diastolic Provider Name and Address Organization Details Last Updated DateTime 08/23/2023 152.4 cm 26.6 kg/m2 87 % 57883.5 6 g 118/78 mm[Hg] Yumiko Obregon [facility] 3 16:07:14 Date Recorded Body height Body mass index (BMI) [Percentile] Per age and sex Body mass index (BMI) Body weight Systolic And Diastolic Provider Name and Address Organization Details Last Updated DateTime 08/24/2022 152.4 cm 83 % 25 kg/m2 95890.8 2 g 125/82 mm[Hg] Sima Diana [facility] 2 15:03:02 Date Recorded Body height Body mass index (BMI) Body mass index (BMI) [Percentile] Per age and sex Body weight Systolic And Diastolic Provider Name and Address Organization Details Last Updated DateTime 09/03/2023 152.4 cm 27.9 kg/m2 91 % 26414.7 1 g 127/77 mm[Hg] Shaye Gordilloyanelis [facility] 3 12:02:04 Social History Question Answer Notes LastModified by Organizat ion Details LastModified Time Tobacco Smoking Status Never Smoker Bethanie Castrejonboris fowler, [facility] 09/03/2023 11:47:59 Are You Blind Or Do You Have Difficulty Seeing? No [email or web address] Information n ot available 08/23/2023 What Is Your Level Of Caffeine Consumption? Occasional [email or web address] Information not available 08/23/2023 In The 14 Days Before Symptom Onset, Have You Had Close Contact With A Laboratory-confirm ed COVID-19 While That Case Was Ill? No [email or web address] Information n ot available 08/23/2023 In The 14 Days Before Symptom Onset, Have You Had Close Contact With A Person Who Is Under Investigation For COVID-19 While That Person Was Ill? No [email or web address] Information not available 08/23/2023 Have You Been To An Area Known To Be High Risk For COVID-19? No [email or web address] Information not available 08/23/2023 Are You Deaf Or Do You Have Serious Difficulty Hearing? No [email or web address] Information not available 08/23/2023 What Type Of Diet Are You Following? REGULAR [email or web address] Information n ot available 08/23/2023 What Is The Highest Grade Or Level Of School You Have Completed Or The Highest Degree You Have Received? VC31597-7 [email or web address] Information not available 08/23/2023 Are There Any Guns Present In Your Home? No [email or web address] Information not available 08/23/2023 Do You Use Protection During Sex? Usually [email or web address] Information not available 08/23/2023 Do You Use Your Seat Belt Or Car Seat Routinely? No [email or web address] Information not available 08/23/2023 Do You Have Smoke And Carbon Monoxide Detectors In Your Home? No [email or web address] Information not available 08/23/2023 Do You Use Sunscreen Routinely? Yes [email or web address] Information not available 08/23/2023 Has Tobacco Cessation Counseling Been Provided? No [email or web address] Information not available 09/03/2023 Have You Used IV Drugs? No [email or web address] Information not available 08/23/2023 Sex: Unknown Functional Status Question Answer Note LastModified by OrganveriCARat ion Details LastModified Time Do you use any illicit or recreational drugs? No Information not available 08/24/2022 Do you or have you ever used any other forms of tobacco or nicotine? No [email or web address] Information not available 09/03/2023 What is your level of alcohol consumption? None Information not available 08/24/2022 What is your exercise level? Heavy [email or web address] Information not available 08/23/2023 Mental Status None [...] ICD10 Code Diagnosis IMO Codes Diagnosis Note [id number] Nan Ku MD [facility] [address],[place] [address] 08/24/2022 14:42:30 09/05/2022 18:46:58 Contraception care management 797385596 Z30.9 Break-thro ugh bleeding 44230386 N92.1 Venereal d isease screening 654765891 Z11.3 [id number] ASHLEY Llamas [facility] [address],[place] [address] 09/09/2022 11:56:38 09/09/2022 12:56:22 Implantation of subcutaneous contraceptive 512445335 Z30.9 Patient is here currently on her menses. She was given all the r/b/a of placement of the Nexplanon device and has signed the consent. She is fully aware of all possible side effects of the device and has decided to move forward with placement. Insertion site was cleansed with betadine and 3cc lidocaine used for anesthesia . Device was placed in the left arm per usual fashion w/o complicati on and patient instructed to f/u in one month or earlier if there are any si/sx of infection or hypersensi tivity at the insertion siteRTC for f/u in 1 month Nexplanon : [facility] [address]25[address]- 01 Lot [id number] Expires 12/10/24 Screening procedure 2012 5006 Z13.9 [id number] ASHLEY Llamas [facility] [address],[place] [address] 08/23/2023 15:28:04 08/23/2023 17:10:59 Nausea 334153541 R11.0 Urinary symptoms 9266706 08 R39.9 Vaginitis 82263089 N76.0 Venereal d isease screening 448875682 Z11.3 Contracept ion care management 137472847 Z30.9 Discussed management options for AUB with nexplanon. Option of estradiol course vs OCP in combinatio n. Alternativ e BC methods discussed. She is int in Mirena IUD. R/b/a reviewed. If desired, RTC for nexplanon removal w/ IUD insertion. pt collected vaginitis/ STI panel sentrx for BV sent, r/b/a reviewedvu lvar care guidelines discusseds afe sexual practices discussed and encouraged urine cx sentprecau tions discussed Patient is to contact office or go to nearest ED/Urgent care if fever >/= 100.1, pain, excessive bleeding, unusual drainage or swelling in area of concern; or experienci ng worsening sx's or new onset of concerning sx's. Understand ing verbalized . All questions answered to patient satisfacti on. Time spent in visit is a total of 35 mins with at least 50% of visit consisting of counseling and review of plan of care. [id number] ASHLEY Llamas [facility] [address] [address] 09/03/2023 11:47:48 09/03/2023 13:54:20 Removal of subcutaneous contraceptive 349663579 Z30.46 UPT (-)nexplan on removed and Mirena IUD placed (see procedure note)pt tolerated procedure well, precaution s reviewedRT C for IUD check in 4-6 weeks Insertion of intrauterine contraceptive device 48337647 Z30.430 She has been counseled on all of the r/b/a of placement of an intrauteri ne device that include but are not limited to uterine perforatio n, injury to cervix, vagina, bladder, and bowel.Risk s of bleeding due to injury or increased irregular bleeding due to progestin effect of the device. Risks of infection would be increased within the first 21 days of placement with concomitan t cervicitis . She understand s that the device will need to be removed in this instance due to increased risk of Pelvic inflammato ry disease. Patient is aware she is at higher risk for STD and if contracted she could lose her fertility. Pt is aware that if occurs that she should contact office immediatel y to rule out ectopic which could be life threatenin g. IUD will also need to be removed and this could cause miscarriag e. Patient also informed that in the event her strings are absent or embedded at the time of removal she may need to have the IUD surgically removed. She was informed of the above and properly consented. IUD placed w/o complicati on. Patient should return to office after next period to check for string placement. Patient to expect irregular bleeding but should be seen in the ED if bleeding increases to soaking a pad an hour for at least 2 hours. She verbalized understand ing. Contracept ion care management 722348513 Z30.9 [id number] Amandeep Castellanos MD [facility] [address] [address] 06/18/2025 09:42:47 06/18/2025 13:03:14 Pain in pelvis 34954158 R10.20 41125 This patient is a 20-year-ol d female [...] hemorrhage and infection. Abnormal u terine bleeding 9574835157 9100 N93.9 159588 Menometrorrhagia 9693779 08 N92.1 1074612 Health Concerns Section Related Observation LastModified by Organization Detai ls LastModified Time None Recorded Concern Status LastModified by Organization Details LastModified Time None Recorded Advance Directives Directive None Recorded Payers Insurance Date Sequence Insurance Name Policy Number Policy Dougherty Covered Member ID Dougherty Member ID Guarantor Name 07/30/2025 1 [place] [id number] Jan Hammonds [id number] Jan Hammonds 06/15/2025 1 [place] [id number] Jan Hammonds [id number] Jan Hammonds Notes Date Note Type Note Provider Name and Address Organization Details Recorded Time 08/24/2022 text/html Patient is a 17yo G0 who presents for control change. She is sexually active. On Lo loestrin for 3 years. Tried higher dose pill and had anger and depression. They pay a lot for Lo loestrin as insurance doesn't cover. Also she has been bleeding since 07/09 continuously. Her bleeding has always been irregular on lolo. She has migraines, no aura. never had std testing. uses condoms most of the time. Concerns: HPV vaccine:done Depression:denies Domestic violence:denies exercise:yes Nan Ku MD [address], [place], [address], [facility] 09/04/2022 21:14:09 09/09/2022 text/html 17yo [id number] for nexplanon insertion ASHLEY Llamas [address], [place], [address], [facility] 09/09/2022 12:39:19 08/23/2023 text/html 18yo O8hrygskts for irregular bleeding and vaginal symptomstx for a UTI and yeast infection 2 weeks ago at [facility], urinary symptoms resolved - no longer having vaginal itching. Does have a fishy odor and clear/white discharge now.Nexplanon for BC - inserted 09/09/2022since insertion periods can be 3 weeks at a time, very random intervals. Cramping with periods. Wants to discuss other optionsSA, denies any new partnersneg flu-like symptomsneg urinary symptomsneg pelvic pain ASHLEY Llamas [address], [place], [address], [facility] 08/23/2023 16:49:01 09/03/2023 text/html 18yopresents for nexplanon removal with Mirena IUD placement ASHLEY Llamas [address], [place], [address], [facility] 09/03/2023 13:36:30 06/18/2025 text/html Beer-Pelvic PainReported by Patient This [...] is risk of hemorrhage and infection. Amandeep Castellanos MD [address], [place], [address], [facility] 06/18/2025 13:03:06 OBGyn Episode No OBEpisode recorded.
== END 2025-07-31 09:05 | disposition home or self-care (01) ==
LOC: ANHSURGERY 09:08
PROVIDERS: Anesthesiology; Visit Provider Obstetrics & Gynecology
DX: D64.9 Anemia, unspecified (principal)
CPT/HCPCS: 36415; 85014; 85018

== ENCOUNTER 2025-08-02 17:35 | Observation (INO) | payer BC, SELFPAY ==
[2025-07-25 15:07] VITALS: BMI 29.7
--- NOTE | 2025-07-25 15:44 | PC.NURSE ---
[facility] has started construction of its new state of the art ER which will open Spring 2026. With this, we anticipate parking may be a challenge for some our surgical patients and families. Parking spaces are limited but are available for all Surgical, obstetrics, and ER patients sharing this lot. If you arrive and find you are having a hard time finding a parking space, please note that we understand the challenges, please drive around the hospital and park near Hospital Entrance 1. When you enter this entrance, you can ask a volunteer to direct or take you back to the surgical waiting area to check in. We appreciate everyone?s understanding of these expected challenges while we build for your future. Report to the Outpatient Waiting Room, entrance under the green pavilion located off [address], at 0600 on 08-01-25. Planned Procedure Time: 0730.? Time changes happen often and if your time is changed the preop area will call you the afternoon before. - You and your visitor will be asked to self-screen and do not enter if you have any COVID symptoms. Please call surgeon if you need to reschedule. - A mask is optional within the hospital at this time. Patients may have clear liquids (water, carbonated beverages, clear teas, apple juice) until 3 hours prior to surgery with a maximum of 20 ounces. - No food from midnight until time of surgery and no smoking, or chewing tobacco (or any form of nicotine). No chewing gum, candy or mints. - Infants may have breast milk until 4 hours before surgery, infant formula 6 hours prior to surgery. - Children will be allowed to drink immediately following surgery.? If applicable, please bring a bottle or sippy cup to assist with drinking. Juice, water, soda, and popsicles are readily available.? For infants on formula, please bring formula the day of surgery.? Pacifiers are allowed. Take only the following medications with a SIP of water on the morning of surgery: None DO NOT STOP ANY OF YOUR OTHER PRESCRIPTION MEDICATIONS PRIOR TO SURGERY EXCEPT THE FOLLOWING Hold all vitamins and supplements for 3 days per anesthesiologist. 07-29-25 Medications to discontinue per physician: N/A Please no make-up, nail burmese, hairspray, perfume, deodorant, or body powder the day of surgery.? No jewelry (including any body piercings) or valuables the day of surgery, leave them at home.? Please take a shower or bath the night before, or the morning of, surgery with an antibacterial soap.? Wear comfortable, loose fitting clothing.? Children are encouraged to wear pajamas. - Jewelry must be removed prior to entering the operating room.? Rings and piercings that are not removed may be cut off. - The hospital will not accept responsibility for valuables.? - Please leave all valuables, including medications, at home the day of surgery. If you are going home after surgery, a licensed transportation driver must drive you home.? - NO public transportation without another adult if you receive anesthesia. - We recommend that an adult stay with you for 24 hours following discharge. - We also recommend that you do not drive, make important decision, drink alcoholic beverages, or take any drugs that were not prescribed by your health care provider for at least 24 hours after your discharge time. For Pediatric surgeries, we recommend two adults accompany the child home. Follow any additional instructions given to you from your surgeon. Telephone instructions given to Devorah Hammonds and asked if any additional questions and then verbalized understanding. Patient advised to call surgeon office or pre surgery nurse liaison [phone] if any additional questions.
[2025-08-01] VITALS (24 sets, daily range): BP systolic 97–139; BP diastolic 36–92; PULSE 61–110; RESP 12–20; TEMP 36.2–37.5; O2SAT 96–100; BMI 30.2
--- OUTSIDE RECORDS SUMMARY | 2025-08-01 00:31 | XMS_ITS | Encounter Summary ---
Author Organization [facility] Address 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 [address] [place] [address] Peyton Garsia APRN [address] [place] [address] documented as of this encounter Visit Diagnoses Not on filedocumented in this encounter
--- OUTSIDE RECORDS SUMMARY | 2025-08-01 00:31 | XMS_ITS | Encounter Summary ---
Author Organization [facility] Address [address] 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 Gender Identity Not on file Sexual Orientation Not on file documented as of this encounter Plan of Treatment Upcoming Encounters Date Type Department Care Team (Late st Contact Info) Description 08/15/2025 9:00 AM TOP FLAVOR ATTENDANT Confidential [facility] Behavioral Health [facility] [address] [place] [address] Peyton Garsia, JEWEL INSERTER [address] [place] [id number] documented as of this encounter Visit Diagnoses Diagnosis Single liveborn, born in hospital, delivered without mention of delivery- Primary documented in this encounter
--- OUTSIDE RECORDS SUMMARY | 2025-08-01 00:31 | XMS_ITS | Encounter Summary ---
Author Organization [facility] Address [address] [place] [address] Care Team Providers Care Account Executive Agribusiness Name Role Phone Unavailable Primary Care Provider Unavailabl e Encounter Details Date Type Department Care Team (Late st Contact Info) Description 2005 Outpatient Historical [facility] Pediatrics - [facility] [address] [facility] [address] [address] Carine Crenshaw MD [address] 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 [address] [place] [address] Peyton Garsia APRN [address] [place] [address] documented as of this encounter Visit Diagnoses Not on filedocumented in this encounter
--- OUTSIDE RECORDS SUMMARY | 2025-08-01 00:31 | XMS_ITS | Encounter Summary ---
Author Organization [facility] Address [address] [place] [address] Care Team Providers Care Incident Response Lead Name Role Phone Yunier Mei MD Primary Care Provider [phone] Encounter Details Date Type Department Care Team (Late st Contact Info) Description 07/27/2023 [employer] Message Enc [facility] Family Medicine - [place] [address] [facility], [address] [place] [address] [facility] Provider Pediatric Covid Vaccine Recommendation Social History [...] Total Score: 0 11/06/19 22 8:03 AM RN LIAISON documented as of this encounter Care Teams Incident Response Lead Relationship Specialty Start Date End Date Yuiner Mei MD [address] [facility] KIRSTEN [address] [place], [place] [address] PCP - General FAMILY PRACTICE 03/16/23 documented as of this encounter
--- OUTSIDE RECORDS SUMMARY | 2025-08-01 00:31 | XMS_ITS | Clinical Summary ---
Author Organization [facility] Administrative Offices Address [address] [place] [address] Care Team Providers Care Facilities Operations Technician Name Role Phone Unavailable Primary Care Provider [...] Team Description 06/27/2025 9:00 AM CDT Confidential [facility] Behavior[facility] [address] [place] [address] Peyton Garsia APRN None 06/26/2025 External Device Data STL ABSTRACTION Provider, Abstract 06/26/2025 Telephone [facility] [address] [facility] [address] [place] [phone] Kim Martinez MD Surgery 05/30/2025 8:00 AM CDT Confidential [facility] [address] [place] [address] Peyton Garsia APRN None 05/23/2025 Telephone [facility] [place] [address] [place] [phone] Surekha Guerra PA laparoscoopy procedure/GARA 05/22/2025 External [...] worry about transportation for future doctor visits, picker machine operator medication, etc.? 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 albicans, C. tropicalis, C. parapsilosis, and/or C. dubliniensis can be detected, but not differentiated, in the Marilyn spp. result. TRICHOMONAS VAGINALIS (TV), TMA NOT DETECTED NOT DETECTED [facility] CHLAMYDIA TRACHOMATIS RNA, TMA, UROGENITAL NOT DETECTED NOT DETECTED [facility] NEISSERIA GONORRHOEAE RNA, TMA, UROGENITAL NOT DETECTED NOT DETECTED [facility] Comment: For additional information, please refer to https://education.ETHERA/faq/YUO074 (This link is being provided for information/ educational purposes only.) Test Performed at: [facility] [id number] [address] [id number] Mac Bradley MD Genital SPECIMEN FROM VAGINA / Unknown 04/24/2025 1:38 PM CDT 04/24/2025 6:24 PM CDT Surekha [facility] - GENERAL ORDERABL ES Final Result [facility] [phone] [facility] [id number] [address] [phone] from Last 3 Months or Most Recently Relevant to Health Maintenance Insurance [facility] BLUE ACCESS CHOICE
--- OUTSIDE RECORDS SUMMARY | 2025-08-01 00:31 | XMS_ITS | Encounter Summary ---
Author Organization [facility] Address [address] [place] [address] Care Team Providers Care Special Tester Name Role Phone Unavailable Primary Care Provider Unavailabl e Encounter Details Date Type Department Care Team (Late st Contact Info) Description 2005 Outpatient Historical [facility] Pediatrics - [facility] [address] [facility] [address] [address] Gerald Mcpherson MD NO ADDRESS ON FILE Social History Tobacco Use Types Packs/Day Years Used Date Smoking Tobacco: Never Assessed Comments Unknown Sex and Gender Information Value Date Recorded Sex Assigned at Not on file 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 [address] [place] [address] Peyton Garsia APRN [address] [place] [phone] documented as of this encounter Visit Diagnoses Not on filedocumented in this encounter
--- OUTSIDE RECORDS SUMMARY | 2025-08-01 00:31 | XMS_ITS | Clinical Summary ---
Author Organization [facility] Address [facility] [place] [address] Care Team Providers Care Tree Climber Name Role Phone Yunier Mei MD Primary Care Provider [phone] Allergies No known active allergies Medications fluticasone [...] Comments Blood Pressure 110/80 09/14/2023 3:10 PM PROCESS SPECIALIST Pulse 74 09/14/2023 3:10 PM PROCESS SPECIALIST Temperature 36.9 C (98.5 F) 09/14/2023 3:10 PM PROCESS SPECIALIST Respiratory Rate 18 09/14/2023 3:10 PM PROCESS SPECIALIST Oxygen Saturation 98% 09/14/2023 3:10 PM PROCESS SPECIALIST Inhaled Oxygen Concentration - - Weight 62.3 kg (137 lb 4.8 oz) 09/14/2023 3:10 P M PROCESS SPECIALIST Height 153.7 cm (5' 0.5) 03/16/2023 8:33 AM CDT Body Mass Index 26.37 03/16/2023 8:33 AM CDT Plan of Treatment Health Maintenance Due Date Last Done Comments Meningococcal B Vaccine (1 of 2 - Standard) 2021 Hepatitis C 2023 Annual Physical 03/16/2024 03/16/2023 PHQ-2 (Physician [place]) 09/06/2024 09/14/2023 COVID-19 Vaccine ( season) 2025 [...] complete this topic Insurance BLUE CROSS BLUE [facility] Care Teams Tree Climber Relationship Specialty Start Date End Date Yunier Mei MD [address] [facility] [address] [place] [address] PCP - General FAMILY PRACTICE 03/16/23
[2025-08-01] MEDS: ACETAMINOPHEN 500 MG TABLET 1000 MG PO ×4 (06:45→23:57)
[2025-08-01] MEDS: LACTATED RINGERS 1,000 ML 30 ML IV CONT ×2 (06:45→09:39)
[2025-08-01] MEDS: KETOROLAC 15 MG/ML VIAL (*BKC) IV PUSH (06:45)
--- NOTE | 2025-08-01 07:16 | PM.IMHP ---
H&P: HPI History of Present Illness Date/Time: 08/01/25 07:16 Chief Complaint: Pelvic pain Narrative: This patient is a 20-year-old female with chronic pelvic pain. We agreed to perform diagnostic laparoscopy. She understands risks, benefits, and alternatives. She has completed informed consent process is ready to proceed. The patient understands the details of the procedure. The procedure has been explained in detail. She understands the risks. She understands that injuries may occur that result in hospitalization, more surgery, and severe illness. She understands risk of hemorrhage and infection. She denies any chest pain or shortness of breath. She denies any nausea, vomiting, fever, chills. Review of Systems Review of Systems: All systems reviewed & are unremarkable except as noted in HPI and below Constitutional: Constitutional: Denies chills, Denies fatigue, Denies fever(s) and Denies weakness Eyes: Eyes: Denies blurry vision, Denies change in vision, Denies loss of peripheral vision, Denies loss of vision, Denies other visual disturbances and Denies eye pain ENT: Denies vertigo, Denies dizziness, Denies hearing loss, Denies mouth pain, Denies nasal obstruction, Denies neck mass and Denies neck pain Cardiovascular: Cardiovascular: Denies chest pain, Denies diaphoresis, Denies syncope, Denies leg edema and Denies dyspnea Respiratory: Respiratory: Denies chest congestion, Denies cough, Denies hemoptysis, Denies dyspnea and Denies wheezing Gastrointestinal: Gastrointestinal: Denies abdominal pain, Denies constipation, Denies diarrhea, Denies nausea and Denies vomiting Genitourinary: Genitourinary: Denies hematuria, Denies change in libido, Denies nocturia, Denies genital lesions, Denies flank pain and Denies urinary urgency Musculoskeletal: Musculoskeletal: Denies abnormal gait, Denies back pain, Denies myalgias, Denies arthralgias, Denies joint swelling, Denies muscle weakness and Denies neck pain Integumentary/Breasts: Skin/Breast: Denies swelling, Denies breast pain, Denies breast mass, Denies dry skin, Denies nipple discharge, Denies unusual bruising and Denies jaundice Neurologic: Denies Neuro-related abnormal movements, Denies Abnormal speech present, Denies abnormal gait, Denies behavioral changes, Denies confusion, Denies vertigo, Denies dizziness, Denies syncope, Denies loss of vision, Denies memory loss, Denies convulsions and Denies weakness Psychiatric: Psychiatric: Denies abnormal sleep pattern, Denies behavioral changes, Denies change in libido, Denies confusion, Denies depression, Denies anhedonia and Denies memory loss Endocrine: Endocrine: Reports no additional endocrine complaints, Denies change in libido and Denies fatigue Hematologic/Lymphatic: Hematologic/Lymphatic: Reports no additional hematologic/lymphatic complaints Allergic/Immunologic: Allergic/Immunologic: Reports no additional allergic/immunologic complaints and Denies wheezing PMFSH Social History Social History Smoking status: Never smoker Second hand tobacco smoke exposure: No Alcohol intake: never Substance use: never Substance use type: does not use Living arrangements: with family Spiritual care concerns: No Meds Home Medications and Allergies Home Medications ?Medication ?Instructions ?Recorded ?Confirmed ?Type ascorbate calcium (vitamin C) 814 See Rx Instructions PO WEEKLY 07/25/25 07/25/25 History mg/gram oral powder (Vitamin C (ascorbate calcium)) cholecalciferol (vitamin D3) 50 50 mcg PO DAILY 07/25/25 07/25/25 History mcg (2,000 unit) capsule (D3-2000) ferrous sulfate 325 mg (65 mg 325 mg PO WEEKLY 07/25/25 07/25/25 History iron) tablet (iron) Allergies Allergy/AdvReac Type Severity Reaction Status Date / Time No Known Allergies Allergy Verified 08/01/25 06:56 Vital Signs Vital Signs - 24 hr 08/01/25 06:56 Temperature 97.3 F L Pulse Rate 106 H Blood Pressure 129/92 H Pulse Oximetry 100 Oxygen Delivery Room Air Exam Const: General: cooperative, healthy appearing, comfortable and no acute distress Orientation/consciousness: oriented to person, oriented to place and oriented to time HENMT: Head: normal to inspection Ears: external ears normal Face/Nose/Sinus: Normal external nose present and normal facial exam Face and sinus: normal facial exam Eyes: General: appearance normal, both eyes and all related structures Neck: Neck: normal visual inspection, trachea midline and supple Resp: Auscultation: clear to auscultation bilaterally, no crackles, no rales, no rhonchi and no wheezes Cardio: Rate: regular rate Rhythm: regular rhythm Heart sounds: no click, no murmurs and no rubs GI: GI Palp: No abdominal tenderness, No Soft to palpation, No Tenderness to palpation present (GI) and No Palpable mass present Auscultation: normal bowel sounds Skin: General skin exam: normal color and no rashes or lesions noted Neuro: General: oriented to person, oriented to place and oriented to time Extrem: General: normal to inspection, no joint enlargement, no clubbing, cyanosis or edema, no pedal edema and no calf tenderness Psych: Appearance: grossly normal Mental Status: mental status grossly normal Speech and movement: Normal speech and movement present Assessment and Plan Assessment and plan (1) Pelvic pain: Code(s): R10.20 - Pelvic and perineal pain unspecified side Status: Acute Assessment and Plan: This patient is a 20-year-old female with chronic pelvic pain. We agreed to perform diagnostic laparoscopy. She understands risks, benefits, and alternatives. She has completed informed consent process is ready to proceed.
--- NOTE | 2025-08-01 07:18 | WPDHPUPDATE1 ---
History and Physical Update Update Date/Time: 08/01/25 07:18 History and Physical has been reviewed, including an updated exam of the patient. There are NO changes in the patient's condition. Risks, benefits, and alternatives have been discussed and questions answered. Patient agrees to proceed with procedure.
--- NOTE | 2025-08-01 07:19 | P.PNAN_ITS ---
Anes - Initial Pre Proc Eval Procedure: Operation Date: 08/01/25 07:30 Proposed Procedures p Diagnostic Laparoscopy - Amandeep Castellanos MD Date/Time: 08/01/25 07:19 Surgeon: Amandeep Castellanos MD Pre Op Diagnosis: pelvic pain Patient Data Age: 20 Gender: F Height: 1.52 m Weight: 70.3 kg Last Vital Signs Temp 36.3 C L 08/01/25 06:56 Pulse 106 H 08/01/25 06:56 BP 129/92 H 08/01/25 06:56 Pulse Ox 100 08/01/25 06:56 O2 Del Method Room Air 08/01/25 06:56 Allergies Allergy/AdvReac Type Severity Reaction Status Date / Time No Known Allergies Allergy Verified 08/01/25 06:56 Home Medications ?Medication ?Instructions ?Recorded ?Confirmed ?Type ascorbate calcium (vitamin C) 814 See Rx Instructions PO WEEKLY 07/25/25 07/25/25 History mg/gram oral powder (Vitamin C (ascorbate calcium)) cholecalciferol (vitamin D3) 50 50 mcg PO DAILY 07/25/25 History mcg (2,000 unit) capsule (D3-2000) ferrous sulfate 325 mg (65 mg 325 mg PO WEEKLY 5 07/25/25 History iron) tablet (iron) HCG: negative Patient hx anesthesia problems: none Family hx anesthesia problems: none Results Review: All pre-operative results and documents have been reviewed as part of the pre- operative evaluation. [facility] Social History Social History Smoking status: Never smoker Second hand tobacco smoke exposure: No Alcohol intake: never Substance use: never Substance use type: does not use Living arrangements: with family Spiritual care concerns: No Anes - Eval Final PreProcedure Day of Procedure 08/01/25 07:19 Patient weight: obese Heart: regular rate and rhythm Lungs: normal air movement Airway: Mallampati scale class II Neurological: alert and oriented Last oral intake: >/= 8 hours ASA classification: II Emergent: no Anesthetic plan: proceed Anesthesia type and monitoring: general ETT and standard monitoring Results Review: All pre-operative results and documents have been reviewed as part of the pre- operative evaluation. Informed Consent: The patient's anesthetic plan and its attendant risks and benefits were discussed with the patient/family/POA. Questions were solicited and answers provided to the satisfaction of the patient/family/POA.
[2025-08-01] MEDS: SCOPOLAMINE 1 MG PATCH 1 PATCH TRANSDERM (07:28)
--- NOTE | 2025-08-01 08:28 | SUR.OPER ---
type and screen given to Loly
--- NOTE | 2025-08-01 09:41 | W.PM.PROC2 ---
Procedure Note - Detailed Date of Procedure 08/01/25 Pre-op Diagnosis pelvic pain Post-op Diagnosis Same (Psoas muscle hematoma) Procedure Performed Diagnostic laparoscopy Surgeon Amandeep Castellanos MD Anesthesia General Indications Pelvic pain Findings Normal pelvic anatomy, no evidence of endometriosis, no scar tissue. Hemostatic psoas muscle at the end of the case. Left psoas was injured. Description of Procedure The patient was taken to the operating room. She was prepped and draped in the dorsal lithotomy position after induction general anesthesia. A 5 mm incision was made with a scalpel on the abdominal skin in the left upper quadrant of the abdomen. A 5 mm trocar was inserted into the intra-abdominal cavity under direct visualization the scope. In the same fashion a 5 mm left lower quadrant trocar was inserted and a 5 mm infraumbilical trocar was inserted. Examination was completed with the exception of the left ovarian fossa. Could not be reached due to the position of the colon at the juncture of the descending and sigmoid colon. In an attempt to take down the connective tissue there the muscle was cut with cautery. It began to bleed severely. This situation could not be managed laparoscopically the patient was then opened with a low transverse abdominal incision. Incision was made with scalpel the low transverse fashion on the abdominal scan. Was carried down the level of the fascia with the knife. The fascia incised in the midline. The fascial incision was extended laterally with Smith scissors. The fascia was tented upwards inferiorly and superiorly and the rectus muscle dissected off bluntly. Rectus muscles were separate in the midline. The preperitoneal fat was dissected bluntly and peritoneal cavity is entered bluntly. Self-retaining retractor was placed in the abdominal cavity. It was a Mobius. Dr. Sims was called who came for the examination. Please see his notes for his findings. The areas of concern stop bleeding after a period of time. It was deemed safe to close the patient. The fascia was closed with the 0 Vicryl in a running locked fashion. The pelvis had previously been irrigated all clots removed. Skin was closed in 0 Vicryl running lock fashion. Subcutaneous tissue was irrigated pinpoint bleeders cauterized. Skin was closed subcuticular 4-0 Monocryl. The trocars were removed. Skin was closed with subcuticular 4 micro. The patient's incisions were covered with Dermabond. She was taken recovery room in stable condition. Sponge lap and needle counts were correct x2. Estimated Blood Loss 500 Complications Other complications (Hemorrhage secondary to injury to the psoas muscle.) Condition Stable Disposition Same day
[2025-08-01] MEDS: fentaNYL CITRATE INJ (*CRX) 100 MCG/2 ML VIAL 25 MCG IV PUSH ×7 (09:44→11:05)
--- NOTE | 2025-08-01 10:30 | SUR.PHASEI ---
SPOKE WITH FABIENNE MULLER WHO STATED THAT SHE COLLECTED FIRST H/H IN OR AT APPROXIMATELY 0830, NOT AT 0935.
[2025-08-01 10:39] LABS: Hematocrit 31.7 % (37.0-47.0); Hemoglobin 10.4 g/dL (12.0-15.0)
--- NOTE | 2025-08-01 11:32 | ADMGEN ---
This patient, Negra Hammonds, was admitted to IMU Room 205-02. Patient/family oriented to hospital policies and general routines including ID bracelet, bed and alarms, visiting hours, pain management, procedures, bathroom and other care routines, personal items, smoking policy, room service/diet, and visiting hours. Information on how to activate the Rapid Response Team has been discussed. Patient/Family are encouraged to report perceived risks to care and to ask questions if they do not understand what they are told or what they should do.
[2025-08-01] MEDS: SIMETHICONE 80 MG TAB.CHEW PO ×2 (11:55→17:28)
[2025-08-01] MEDS: KETOROLAC 30 MG/ML VIAL (*BKC) IV PUSH ×3 (11:55→23:56)
[2025-08-01] MEDS: DEXTROSE 5%/0.45% SOD CHL 1,000 ML 125 ML IV CONT ×2 (11:55→20:04)
[2025-08-01 13:34] LABS: Hematocrit 29.6 % (37.0-47.0); Hemoglobin 10.0 g/dL (12.0-15.0)
--- NOTE | 2025-08-01 13:58 | PM.CNGS ---
Assessment and Plan Assessment and plan (1) Intra-abdominal bleeding: Code(s): R58 - Hemorrhage, not elsewhere classified Status: Acute Assessment and Plan: Will proceed to open laparotomy as patient was converted from diagnostic laparoscopy to open laparotomy by Dr. Castellanos. (2) Pelvic pain: Qualifiers: Laterality: unspecified laterality Qualified Code(s): R10.20 - Pelvic and perineal pain unspecified side Code(s): R10.20 - Pelvic and perineal pain unspecified side Status: Chronic History of Present Illness Consult details Consult date: 08/01/25 Requesting physician: Amandeep Castellanos MD Narrative: Patient had been having pelvic pain and was taken to the operating room today by her crop adjuster, Dr. Castellanos for diagnostic laparoscopy. During the procedure, Dr. Castellanos experienced significant venous bleeding from the left side of the upper pelvis. I was called to see the patient urgently in the operating room. The diagnostic laparoscopy had already been converted to an open laparotomy by Dr. Castellanos prior to my arrival. Other than taking ferrous sulfate weekly for chronic anemia, the patient is healthy. [facility] Family History Family History (Updated 08/01/25 @ 12:09 by Wendy Etienne RN) Other Unknown family medical history Social History Social History Smoking status: Never smoker Second hand tobacco smoke exposure: No Alcohol intake: never Substance use: never Substance use type: does not use Lack of Transportation: No Lack of Food: Never True Current Housing: I Have Housing Concerned About Future Housing: No Difficulty Paying Gas/Electric Bills: No Difficulty Paying for Meds: No Currently Unemployed: No Education: High School Diploma/GED Difficulty w/ Childcare or Family Care: No Living arrangements: with family Spiritual care concerns: No Meds Home Medications and Allergies Home Medications ?Medication ?Instructions ?Recorded ?Confirmed ?Type ascorbate calcium (vitamin C) 814 See Rx Instructions PO WEEKLY 07/25/25 07/25/25 History mg/gram oral powder (Vitamin C (ascorbate calcium)) cholecalciferol (vitamin D3) 50 50 mcg PO DAILY 07/25/25 07/25/25 History mcg (2,000 unit) capsule (D3-2000) ferrous sulfate 325 mg (65 mg 325 mg PO WEEKLY 07/25/25 07/25/25 History iron) tablet (iron) Allergies Allergy/AdvReac Type Severity Reaction Status Date / Time No Known Allergies Allergy Verified 08/01/25 12:08 Vital Signs Vital Signs - 24 hr 08/01/25 06:56 08/01/25 09:39 08/01/25 09:50 Temperature 36.3 C L 36.2 C L Pulse Rate 106 H 110 H 86 Respiratory Rate 15 17 Blood Pressure 129/92 H 107/52 L 119/61 Pulse Oximetry 100 100 100 Oxygen Delivery Room Air Simple Face Mask Simple Face Mask Oxygen Flow Rate 8 8 08/01/25 10:05 08/01/25 10:20 08/01/25 10:35 Temperature 36.2 C L Pulse Rate 88 85 61 Respiratory Rate 19 18 14 Blood Pressure 132/51 L 119/50 L 114/59 L Pulse Oximetry 97 100 97 Oxygen Delivery Room Air Room Air Room Air Oxygen Flow Rate 08/01/25 10:50 08/01/25 11:05 08/01/25 11:20 Temperature 36.2 C L 36.2 C L Pulse Rate 61 68 88 Respiratory Rate 14 14 16 Blood Pressure 115/63 107/54 L 111/61 Pulse Oximetry 96 96 97 Oxygen Delivery Room Air Room Air Room Air Oxygen Flow Rate 08/01/25 11:35 08/01/25 12:00 08/01/25 12:00 Temperature 36.6 C Pulse Rate 78 76 Respiratory Rate 18 Blood Pressure 116/48 L Pulse Oximetry 100 Oxygen Delivery Room Air Oxygen Flow Rate 08/01/25 12:15 08/01/25 12:45 08/01/25 13:15 Temperature 36.9 C 36.8 C 36.8 C Pulse Rate 64 73 67 Respiratory Rate 14 16 14 Blood Pressure 108/40 L 107/59 L 110/36 L Pulse Oximetry 98 99 99 Oxygen Delivery Oxygen Flow Rate Exam Narrative: Exam deferred to the operative report Results Labs 08/01/25 12:56 Labs: Abnormal lab results 08/01/25 08/01/25 Range/Units 10:14 12:56 Hgb 10.4 L D 10.0 L (12.0-15.0) g/dL Hct 31.7 L 29.6 L (37.0-47.0) % All other labs normal.
--- NOTE | 2025-08-01 14:03 | P.OP_ITS ---
Procedure Note - Detailed Date of Procedure 08/01/25 Pre-op Diagnosis Intra-abdominal bleeding Post-op Diagnosis Same Procedure Performed Laparotomy for intra-abdominal bleeding during a surgical procedure Surgeon Carlos Sims MD [employer] Dr. Castellanos Anesthesia General Indications Patient developed significant left-sided retroperitoneal bleeding during a laparoscopic procedure for pelvic pain. This had been converted to an open procedure with Pfannenstiel incision by Dr. Castellanos. I was asked to see the patient in the operating room for laparotomy and assistance. Findings There were some small 1-1-1/2 cm puncture type wounds in the left psoas muscle. Dr. Castellanos identified this area as the source of the bleeding. By the time I was in the operating room, the active bleeding had stopped. There was no evidence of colon injury or ischemia. There was quite a bit of clot left in the left upper quadrant and in the pelvis. Description of Procedure Patient was open on the operating table as I described above. I placed an Sage wound guard that was already on the instrument table in to the open wound. This facilitated exposure. We also used some retraction of the abdominal sidewalls as well. The left psoas muscle had these to puncture type wounds that had penetrated the muscle to some degree. There was evidence of hematoma in the left psoas muscle but it was moderate and not expanding. I could not find any active bleeding in the abdomen at all. I did expose the left upper quadrant and evacuated solid clot from this area. There was also quite a bit of clot in the pelvis. This was also manually evacuated. Probably 100 to on 150 cc of clot was removed. I then irrigated the pelvis thoroughly with warm saline and removed the saline with suction. I again checked the left psoas and there was no expanding hematoma and no bleeding from the 2 sites of injury. I returned the surgery to Dr. Castellanos for closure. I also checked the right femoral pulse which was excellent. Estimated Blood Loss 500 Pathology None sent Complications None Condition Stable Disposition PACU [facility] Billing Surgery - Charge Forward: Surgery Billing (Exploratory laparotomy for intra- abdominal bleeding during a surgical procedure)
[2025-08-01] MEDS: ONDANSETRON INJ 4 MG/2 ML VIAL IV PUSH (14:54)
--- NOTE | 2025-08-01 16:27 | PM.GYNPNOP ---
WOOD INSPECTOR - A/P Postoperative Procedures: Procedures Operation Date: 08/01/25 07:30 Actual Procedure Side Surgeon p Diagnostic Laparoscopy Converted to exploratory Laparotomy Not Applicable Amandeep Castellanos MD Time Spent With Patient Time: Total time spent is greater than 50% in coordination of care (as documented) at patient's floor/unit and/or counseling patient: Time with patient: less than 15 minutes WOOD INSPECTOR- PN:Subj Post-Op Subjective Date/time seen: 08/01/25 16:27 Interval history: [age] year with intraoperative injury to the psoas muscle causing some retroperitoneal bleeding. Stopped in the IMU to speak to the family. Explained the events in more detail. Reviewed vitals. Review chest [id number]. Discussed diet and agreed to advance with nursing. WOOD INSPECTOR - PN: Obj Data Vital Signs Vital Signs: Vital Signs - 24 hr 08/01/25 06:56 08/01/25 09:39 08/01/25 09:50 Temperature 97.3 F L 97.1 F L Pulse Rate 106 H 110 H 86 Respiratory Rate 15 17 Blood Pressure 129/92 H 107/52 L 119/61 Pulse Oximetry 100 100 100 Oxygen Delivery Room Air Simple Face Mask Simple Face Mask Oxygen Flow Rate 8 8 08/01/25 10:05 08/01/25 10:20 08/01/25 10:35 Temperature 97.1 F L Pulse Rate 88 85 61 Respiratory Rate 19 18 14 Blood Pressure 132/51 L 119/50 L 114/59 L Pulse Oximetry 97 100 97 Oxygen Delivery Room Air Room Air Room Air Oxygen Flow Rate 08/01/25 10:50 08/01/25 11:05 08/01/25 11:20 Temperature 97.2 F L 97.2 F L Pulse Rate 61 68 88 Respiratory Rate 14 14 16 Blood Pressure 115/63 107/54 L 111/61 Pulse Oximetry 96 96 97 Oxygen Delivery Room Air Room Air Room Air Oxygen Flow Rate 08/01/25 11:35 08/01/25 12:00 08/01/25 12:00 Temperature 98 F Pulse Rate 78 76 Respiratory Rate 18 Blood Pressure 116/48 L Pulse Oximetry 100 Oxygen Delivery Room Air Oxygen Flow Rate 08/01/25 12:15 08/01/25 12:45 08/01/25 13:15 Temperature 98.5 F 98.3 F 98.2 F Pulse Rate 64 73 67 Respiratory Rate 14 16 14 Blood Pressure 108/40 L 107/59 L 110/36 L Pulse Oximetry 98 99 99 Oxygen Delivery Oxygen Flow Rate 08/01/25 14:00 08/01/25 14:15 08/01/25 15:15 Temperature 98.1 F Pulse Rate 66 71 62 Respiratory Rate 14 20 Blood Pressure 110/46 L 98/39 L Pulse Oximetry 99 100 Oxygen Delivery Oxygen Flow Rate 08/01/25 15:16 Temperature Pulse Rate Respiratory Rate Blood Pressure 97/39 L Pulse Oximetry Oxygen Delivery Oxygen Flow Rate Intake/Output Intake/Output: Intake & Output 07/29/25 07/30/25 07/31/25 08/01/25 23:59 23:59 23:59 23:59 Intake Total 150 Output Total 575 Balance -425 Meds/Results Medications: Active Medications Generic Name Dose Route Start Last Admin Trade Name Freq PRN Reason Stop Dose Admin Acetaminophen 1,000 mg 08/01/25 12:00 08/01/25 11:55 Acetaminophen 500 Mg Tablet PO 1,000 mg Q6HR LIBRA Administration Docusate Sodium 100 mg 08/01/25 17:00 Docusate Sodium 100 Mg Capsule PO BID LIBRA Dextrose/Sodium Chloride 1,000 mls @ 125 mls/hr 08/01/25 11:12 08/01/25 11:55 Dextrose 5% Sodium Chloride 0.45% IV CONT 125 mls/hr .Q8H LIBRA Administration Ibuprofen 600 mg 08/02/25 06:00 Ibuprofen 600 Mg Tablet PO Q6HR LIBRA Ketorolac Tromethamine 30 mg 08/01/25 12:00 08/01/25 11:55 Ketorolac 30 Mg/Ml Vial (*[facility]) IV PUSH 08/02/25 00:01 30 mg Q6HR LIBRA Administration Miscellaneous Information 1 each 08/01/25 00:01 Ascorbic Acid Powder 814mg Nonformulary. We Have 500mg Tablets. Also Clarify Frequency. We XX 08/31/25 00:00 CLARIFY LIBRA Miscellaneous Information 1 each 08/01/25 00:01 Ferrous Sulfate-Clarify Frequency. Weekly? Three Times A Week? What Day(S) Due? XX 08/31/25 00:00 CLARIFY LIBRA Naloxone HCl 0.1 mg 08/01/25 11:12 Naloxone Hcl 0.4 Mg/Ml Vial IV PUSH Q2M PRN Respiratory rate less than 10 Non-Formulary Medication 0 mg 08/08/25 09:00 Ascorbate Calcium (Vitamin C) [Vitamin C (Ascorbate Calcium)] PO 09/07/25 08:59 WEEKLY [facility] Non-Formulary Medication 325 mg 08/08/25 09:00 Ferrous Sulfate [Iron] PO 09/07/25 08:59 WEEKLY [facility] Ondansetron HCl 4 mg 08/01/25 11:12 08/01/25 14:54 Ondansetron Inj 4 Mg/2 Ml Vial IV PUSH 4 mg Q6H PRN Administration Nausea Oxycodone HCl 5 mg 08/01/25 11:12 Oxycodone Hcl (*Crx) 5 Mg Tab Ir PO Q4H PRN Pain Rated 4-6 Oxycodone HCl 10 mg 08/01/25 11:12 Oxycodone Hcl (*Crx) 5 Mg Tab Ir PO Q6H PRN Pain Rated 7-10 Simethicone 80 mg 08/01/25 12:00 08/01/25 11:55 Simethicone 80 Mg Tab.Chew PO 80 mg TIDWM [facility] Administration Vitamin D 50 mcg 08/02/25 09:00 Cholecalciferol (Vitamin D3) 25 Mcg (1,000 Units) Tablet PO DAILY [facility] Radiology Results: ITS Impressions Pelvis X-Ray 08/01/25 10:06 IMPRESSION: 1: NO ACUTE BONE OR JOINT ABNORMALITY IDENTIFIED. Chest X-Ray 08/01/25 15:44 IMPRESSION: 1: NO ACUTE CARDIOPULMONARY DISEASE. Labs 08/01/25 12:56 Labs: Laboratory Results - last 24 hr 08/01/25 08/01/25 08/01/25 08:22 10:14 12:56 Hgb 10.4 L D 10.0 L Hct 31.7 L 29.6 L Blood Type O Positive Antibody Screen Negative
--- NOTE | 2025-08-01 17:02 | PM.IMCN ---
Assessment and Plan Assessment and plan (1) Intra-abdominal bleeding: Code(s): R58 - Hemorrhage, not elsewhere classified Status: Acute Assessment and Plan: Patient underwent a exploratory laparoscopic the with Dr. Castellanos on 08/01 for chronic pelvic pain and menorrhagia. Has previously tried multiple forms of control without success in treating her pain or heavy bleeding. Currently has a Mirena in place. During the procedure, she developed significant bleeding her left psoas muscle. Hemostasis was achieved, hematoma was noted. General surgery additionally in the operating room. See operative notes. Hemoglobin 14.4 -> 10.4, repeated this afternoon and 10.0. Pulses intact on exam. Received 3 L of IV fluids while in the OR and currently on maintenance fluids. Pressure initially soft earlier this afternoon, however has stabilized at 112/48. - if hemodynamic instability occurs, plan for transfusion - repeat H&H overnight, recheck in a.m. - neurovascular checks q.4 - shortness of breath noted post procedure, CXR clear. Likely related to anemia. (2) Iron deficiency anemia: Qualifiers: Iron deficiency anemia type: chronic blood loss Qualified Code(s): D50.0 - Iron deficiency anemia secondary to blood loss (chronic) Code(s): D50.9 - Iron deficiency anemia, unspecified Status: Chronic Assessment and Plan: Patient has history of chronic iron deficiency anemia, likely related to menorrhagia. Hemoglobin decreased from 14 -> 10 postoperatively, see above. - on ferrous sulfate 325 weekly, increase to 325 daily while inpatient (3) Pelvic pain: Qualifiers: Laterality: unspecified laterality Qualified Code(s): R10.20 - Pelvic and perineal pain unspecified side Code(s): R10.20 - Pelvic and perineal pain unspecified side Status: Chronic Assessment and Plan: See history. Per operative notes - normal pelvic anatomy, no evidence of endometriosis, no scar tissue noted. Plan Diet: Clear liquid, advance as tolerated GI Prophylaxis: N/a DVT Prophylaxis: SCDs IV fluids: 3L -> D5/NS 125 mL/hr Lines/Tubes: Peripheral IV, Richards Code Status: Full code HPI Date of Consult Consult date: 08/01/25 Requesting Physician: Amandeep Castellanos MD Primary Care Provider: PRENATAL NURSE PHYSICIAN Consult Narrative Reason for consult: Medical Managment Narrative: 20 y/o F with PMH of menorrhagia, iron deficiency anemia, and chronic pelvic pain presented here for a diagnostic laparoscopy. HPI obtained through patient report and patient's parents. Per the patient's mother, she has had matter how she has since onset of her menstrual cycle at age 13. She has tried multiple methods of control including oral control, Nexplanon, Depo, and now currently has a Mirena IUD in place. Despite multiple controls, she has continued to have significant better has she had a at and chronic pelvic pain. Initially with the Mirena she had cessation of her cycle for approximately a 6-8 months. Then developed bleeding twice per month and was heavier than prior. Presented here for a diagnostic laparoscopy. During the procedure she developed significant bleeding to her left psoas muscle due to intraoperative complications. General surgery was called to the operating room. Hemostasis was achieved. Postoperatively the patient is reporting shortness of breath, left upper quadrant pain, and pain beneath her bilateral shoulder blades. Currently denies nausea, vomiting, fever, diaphoresis, or numbness/tingling to her extremities. Preop VS: 97.3? F, HR 106, RR 15, 129/92, and 100% on RA. Labs/Imaging: Hgb 14.4 (07/31) -> 10.4 (08/01). Pelvic XR showed no acute bone or joint abnormality. CXR showed no acute cardiopulmonary disease. Review of Systems Review of Systems: All systems reviewed & are unremarkable except as noted in HPI and below PMFSH Past Medical History Medical History Iron deficiency anemia Chronic female pelvic pain Menorrhagia Surgical History Surgical History History of laparotomy (08/01/25) exploratory laparoscopic procedure converted to laparotomy Family History Family History Other Unknown family medical history Social History Social History Smoking status: Never smoker Second hand tobacco smoke exposure: No Alcohol intake: never Substance use: never Substance use type: does not use Lack of Transportation: No Lack of Food: Never True Current Housing: I Have Housing Concerned About Future Housing: No Difficulty Paying Gas/Electric Bills: No Difficulty Paying for Meds: No Currently Unemployed: No Education: High School Diploma/GED Difficulty w/ Childcare or Family Care: No Living arrangements: with family Spiritual care concerns: No Meds Home Medications and Allergies Home Medications ?Medication ?Instructions ?Recorded ?Confirmed ?Type ascorbate calcium (vitamin C) 814 See Rx Instructions PO WEEKLY 07/25/25 07/25/25 History mg/gram oral powder (Vitamin C (ascorbate calcium)) cholecalciferol (vitamin D3) 50 50 mcg PO DAILY 07/25/25 07/25/25 History mcg (2,000 unit) capsule (D3-2000) ferrous sulfate 325 mg (65 mg 325 mg PO WEEKLY 07/25/25 07/25/25 History iron) tablet (iron) Allergies Allergy/AdvReac Type Severity Reaction Status Date / Time No Known Allergies Allergy Verified 08/01/25 12:08 Vital Signs Vital Signs - 24 hr 08/01/25 06:56 08/01/25 09:39 08/01/25 09:50 Temperature 97.3 F L 97.1 F L Pulse Rate 106 H 110 H 86 Respiratory Rate 15 17 Blood Pressure 129/92 H 107/52 L 119/61 Pulse Oximetry 100 100 100 Oxygen Delivery Room Air Simple Face Mask Simple Face Mask Oxygen Flow Rate 8 8 08/01/25 10:05 08/01/25 10:20 08/01/25 10:35 Temperature 97.1 F L Pulse Rate 88 85 61 Respiratory Rate 19 18 14 Blood Pressure 132/51 L 119/50 L 114/59 L Pulse Oximetry 97 100 97 Oxygen Delivery Room Air Room Air Room Air Oxygen Flow Rate 08/01/25 10:50 08/01/25 11:05 08/01/25 11:20 Temperature 97.2 F L 97.2 F L Pulse Rate 61 68 88 Respiratory Rate 14 14 16 Blood Pressure 115/63 107/54 L 111/61 Pulse Oximetry 96 96 97 Oxygen Delivery Room Air Room Air Room Air Oxygen Flow Rate 08/01/25 11:35 08/01/25 12:00 08/01/25 12:00 Temperature 98 F Pulse Rate 78 76 Respiratory Rate 18 Blood Pressure 116/48 L Pulse Oximetry 100 Oxygen Delivery Room Air Oxygen Flow Rate 08/01/25 12:15 08/01/25 12:45 08/01/25 13:15 Temperature 98.5 F 98.3 F 98.2 F Pulse Rate 64 73 67 Respiratory Rate 14 16 14 Blood Pressure 108/40 L 107/59 L 110/36 L Pulse Oximetry 98 99 99 Oxygen Delivery Oxygen Flow Rate 08/01/25 14:00 08/01/25 15:15 08/01/25 15:16 Temperature 98.1 F Pulse Rate 66 62 Respiratory Rate 20 Blood Pressure 98/39 L 97/39 L Pulse Oximetry 100 Oxygen Delivery Oxygen Flow Rate 08/01/25 16:15 08/01/25 16:15 Temperature 98.2 F 98.5 F Pulse Rate 69 65 Respiratory Rate 18 12 Blood Pressure 139/63 112/48 L Pulse Oximetry 96 100 Oxygen Delivery Oxygen Flow Rate Exam Const: General: comfortable and no acute distress Other: , female, young adult, modestly ill-appearing, fatigued HENMT: Face/Nose/Sinus: Normal nares present Mouth: Yes moist mucous membranes Eyes: General: appearance normal, both eyes and all related structures Sclera: sclerae normal Pupils: Equal, round and reactive pupils present EOM: EOMs intact bilaterally Resp: Effort & Inspection: normal respiratory effort Auscultation: clear to auscultation bilaterally Cardio: Rate: regular rate Rhythm: regular rhythm Other: S1-S2 present without murmur, rub, ectopy GI: Other: Abdomen soft and diffusely tender. Laparoscopic incisions include, well-approximated, no active bleeding or hematoma appreciated. Laparotomy incision well approximated, glued, and no hematoma or erythema. Hypoactive bowel sounds in all quadrants. Skin: General skin exam: no rashes or lesions noted Wounds: no wounds Other: + pallor Neuro: Speech: normal speech Motor exam (neuro): 5/5 motor strength present throughout Sensory Exam: normal sensation Other: A&O x4 Extrem: General: normal to inspection Psych: Mental Status: mental status grossly normal Affect: normal affect Other: Good insight and judgment, pleasant Results Labs 08/01/25 12:56 Labs: Short CBC 08/01/25 08/01/25 Range/Units 10:14 12:56 Hgb 10.4 L D 10.0 L (12.0-15.0) g/dL Hct 31.7 L 29.6 L (37.0-47.0) % Quality VTE Prophylaxis VTE prophylaxis: mechanical ordered Hospitalist [facility] Advance Care Plan I have confirmed that the patient's Advanced Care Plan is present, code status is documented, or surrogate decision maker is listed in patient medical record.: Yes Medication Reconciliation I have utilized all available resources to obtain, update and review the patients current medications (includes all prescriptions, OTC, herbals, cannabis, and nutritional supplements).: Yes
[2025-08-01] MEDS: DOCUSATE SODIUM 100 MG CAPSULE PO (17:28)
[2025-08-01] MEDS: FERROUS SULFATE 325 MG TABLET PO (19:00)
[2025-08-01] MEDS: ASCORBIC ACID 500 MG TABLET 1000 MG PO (19:00)
[2025-08-01] MEDS: oxyCODONE HCL (*CRX) 5 MG TAB IR PO (19:06)
[2025-08-02] VITALS (17 sets, daily range): BP systolic 101–117; BP diastolic 41–56; PULSE 59–107; RESP 16–20; TEMP 36.6–37.1; O2SAT 98–100
--- NOTE | ~2025-08-02 | XR_ITS ---
Examination: XR abdomen/kub 1V Clinical History: NO COUNT IN SURGERY, CHECKING FOR FB Comparison: None Technique: Portable AP lower abdomen Findings/impression: 1. Surgical needle overlying right femoral head. 2. Pelvic extraperitoneal free air consistent with surgery. 3. IUD. 4. Otherwise no acute abnormality. Reviewed, dictated and finalized at location R. PRINTER
--- NOTE | ~2025-08-02 | XR_ITS ---
XR pelvis 1-2V 08/01/2025 10:03 INDICATION: Possible retained surgical needle. PROCEDURE: AP pelvis COMPARISON: No prior studies for comparison. FINDINGS: Fracture, dislocation or subluxation is not identified. There is an IUD in the pelvis. There is mottled gas in the pelvis, likely from recent surgery. No additional foreign bodies are identified. The soft tissues appear within normal limits. No foreign bodies are identified. IMPRESSION: 1: NO ACUTE BONE OR JOINT ABNORMALITY IDENTIFIED. Reviewed, dictated and finalized at location O. MECHANICAL TECHNICIAN
--- NOTE | ~2025-08-02 | XR_ITS ---
EXAMINATION: XR chest 1V portable 08/01/2025 15:36 INDICATION: Shortness of breath PROCEDURE: AP portable chest COMPARISON: No prior studies for comparison. FINDINGS: The lungs are clear. The cardiomediastinal silhouette is within normal limits. There are no pleural effusions. There is no pneumothorax suspected. IMPRESSION: 1: NO ACUTE CARDIOPULMONARY DISEASE. Reviewed, dictated and finalized at location O. ER MACHINE OPERATOR
--- NOTE | ~2025-08-02 | CT_ITS ---
CTA abdomen pelvis Clinical History: hgb drop s/p surgery Technique: Helical images lung bases to pelvic outlet IV contrast information not listed in PACS Coronal, sagittal reformats. Multiplanar MIPS CT images acquired with automatic exposure control for dose reduction DLP: 657 mGy-cm Comparison: None Findings: CTA Findings: Abdominal aorta: No aneurysm or dissection. Common iliac arteries: Patent. External iliac arteries: Patent. Hypogastric arteries: Patent. CFAs: Patent. Proximal visualized SFAs and profundas: Patent. 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 SMA: Patent. VIKI: Patent. Renal arteries: Patent. Non-CTA findings: Lung bases: Airspace disease right base. Visualized heart and pericardium: Unremarkable. Liver: Unremarkable. Gallbladder: Unremarkable. Spleen: Unremarkable. Pancreas: Unremarkable. Adrenal glands: Unremarkable. Kidneys: Right kidney- small stone. No hydronephrosis. Left kidney- No renal stones. No hydronephrosis. Cortical cyst. Distal esophagus/stomach: Unremarkable. Small bowel loops: Normal caliber and wall thickness. Colon: Normal caliber and wall thickness. Normal RLQ appendix. Nodes: No enlarged nodes. Peritoneum: No ascites. Scattered free air consistent with recent postoperative state. Urinary bladder: Small intraluminal gas most likely recent catheter rather than infection. Uterus: IUD. Adnexa: No masses. Pelvic extraperitoneal air. Bones: No acute bony abnormality. Soft tissues: Subcutaneous emphysema lower abdominal wall. IMPRESSION: 1. No evidence of hemoperitoneum or active arterial bleed. 2. Free air consistent with postoperative state. 3. Right basilar airspace disease, consider aspiration. Reviewed, dictated and finalized at location [facility]
[2025-08-02 00:32] LABS: Hematocrit 27.4 % (37.0-47.0); Hemoglobin 8.9 g/dL (12.0-15.0)
[2025-08-02] MEDS: DEXTROSE 5%/0.45% SOD CHL 1,000 ML 125 ML IV CONT (02:58)
[2025-08-02] MEDS: ACETAMINOPHEN 500 MG TABLET 1000 MG PO ×4 (06:00→23:20)
[2025-08-02] MEDS: IBUPROFEN 600 MG TABLET PO ×4 (06:01→23:20)
--- NOTE | 2025-08-02 06:21 | PC.NURSE ---
RN went to remove patient gates at 0600. Patient and mother requested to wait until after breakfast because they want to see how she can move around today and wants to try getting up to the chair to eat and then have the gates pulled. RN informed patient if she changed her mind before change of shift just to push call light and I would come take it out.
[2025-08-02 06:32] LABS: Hematocrit 29.0 % (37.0-47.0); Hemoglobin 9.6 g/dL (12.0-15.0); Immature Granulocyte Percent A 0.8 % (0-0.5); Lymphocytes Absolute Auto 1.74 K/mm3 (0.9-3.2); Mean Corpuscular HGB Conc 33.1 g/dl (32-36); Mean Corpuscular Hemoglobin 30.1 pg (26-34); Mean Corpuscular Volume 90.9 fl (80-100); Nucleated Red Blood Cells Absolute Auto 0.000 K/mm3 (0.0-0.012); Nucleated Red Blood Cells Perc 0.0 % (0.0-0.2); Platelet Count Result 283 k/mm3 (150-375); Red Blood Count 3.19 M/mm3 (4.2-5.4); White Blood Count 15.2 K/mm3 (4.5-10.0)
--- NOTE | 2025-08-02 06:32 | ECG_ITS ---
Test Date: 2025-08-02 06:40:57 Measurements Intervals [place] Rate: 65 P: 50 IA: 142 QRS: 42 QRSD: 89 T: 28 QT: 378 QTc: 395 Interpretive Statements SINUS RHYTHM NORMAL ECG No previous ECG available for comparison Electronically Signed On 08-02-2025 08:53:46 SIDE FRAMER by Clayton Bonilla M.D.
[2025-08-02 06:58] LABS: Blood Urea Nitrogen 7 mg/dL (7-17); Carbon Dioxide 27 mmol/L (22-30); Estimated CRCL calculation 97 ml/min; Estimated Glomerular Filt Rate > 60
[2025-08-02 07:05] LABS: Anion Gap 2 mmol/L (4-12); Calcium 8.7 mg/dL (8.4-10.2); Chloride 108 mmol/L (98-107); Glucose 121 mg/dL (65-110); Potassium 4.5 mmol/L (3.4-5.0); Sodium 137 mmol/L (137-145)
[2025-08-02] MEDS: SIMETHICONE 80 MG TAB.CHEW PO ×3 (08:17→17:04)
[2025-08-02] MEDS: CHOLECALCIFEROL (VITAMIN D3) 25 MCG (1,000 UNITS) TABLET 50 MCG PO (08:17)
[2025-08-02] MEDS: DOCUSATE SODIUM 100 MG CAPSULE PO ×2 (08:17→17:04)
--- NOTE | 2025-08-02 08:30 | PM.GYNPNOP ---
DIRECTOR LEARNING SERVICES - A/P Assessment and plan (1) Intraoperative hemorrhage: Code(s): T81.89XA - Other complications of procedures, not elsewhere classified, initial encounter Status: Acute (2) Pelvic hematoma: Status: Acute Plan Continue observation, tolerating p.o., advance diet, pain control, discontinue 1 IV site. Cap fluids. Medicine following. Postoperative Procedures: Procedures Operation Date: 08/01/25 07:30 Actual Procedure Side Surgeon p Diagnostic Laparoscopy Converted to exploratory Laparotomy Not Applicable Amandeep Castellanos MD Postoperative day: 1 Postoperative status: doing well Postoperative plan: see orders Time Spent With Patient Time: Total time spent is greater than 50% in coordination of care (as documented) at patient's floor/unit and/or counseling patient: Time with patient: less than 15 minutes DIRECTOR LEARNING SERVICES- PN:Subj Post-Op Subjective Date/time seen: 08/02/25 08:31 Ambulating, tolerating p.o., voiding., pain with flexing her left thigh., no shortness of breath, no dizziness Interval history: [age] year with intraoperative injury to the psoas muscle causing some retroperitoneal bleeding. Stopped in the IMU to speak to the family. Explained the events in more detail. Reviewed vitals. Review chest [id number]. Discussed diet and agreed to advance with nursing. Subjective: patient reports feeling better, patient has no complaints and pain is well controlled Exam Const: General: healthy appearing, comfortable and no acute distress Resp: Auscultation: clear to auscultation bilaterally, no rales, no rhonchi and no wheezes Cardio: Rate: regular rate Heart sounds: no click, no murmurs and no rubs GI: Inspection: non-distended Auscultation: normal bowel sounds Extrem: General: normal to inspection, no pedal edema and no calf tenderness DIRECTOR LEARNING SERVICES - PN: Obj Data Vital Signs Vital Signs: Vital Signs - 24 hr 08/01/25 09:39 08/01/25 09:50 08/01/25 10:05 Temperature 97.1 F L Pulse Rate 110 H 86 88 Respiratory Rate 15 17 19 Blood Pressure 107/52 L 119/61 132/51 L Pulse Oximetry 100 100 97 Oxygen Delivery Simple Face Mask Simple Face Mask Room Air Oxygen Flow Rate 8 8 08/01/25 10:20 08/01/25 10:35 08/01/25 10:50 Temperature 97.1 F L Pulse Rate 85 61 61 Respiratory Rate 18 14 14 Blood Pressure 119/50 L 114/59 L 115/63 Pulse Oximetry 100 97 96 Oxygen Delivery Room Air Room Air Room Air Oxygen Flow Rate 08/01/25 11:05 08/01/25 11:20 08/01/25 11:35 Temperature 97.2 F L 97.2 F L 98 F Pulse Rate 68 88 78 Respiratory Rate 14 16 18 Blood Pressure 107/54 L 111/61 116/48 L Pulse Oximetry 96 97 100 Oxygen Delivery Room Air Room Air Oxygen Flow Rate 08/01/25 12:00 08/01/25 12:00 08/01/25 12:15 Temperature 98.5 F Pulse Rate 76 64 Respiratory Rate 14 Blood Pressure 108/40 L Pulse Oximetry 98 Oxygen Delivery Room Air Oxygen Flow Rate 08/01/25 12:45 08/01/25 13:15 08/01/25 14:00 Temperature 98.3 F 98.2 F Pulse Rate 73 67 66 Respiratory Rate 16 14 Blood Pressure 107/59 L 110/36 L Pulse Oximetry 99 99 Oxygen Delivery Oxygen Flow Rate 08/01/25 15:15 08/01/25 15:16 08/01/25 16:00 Temperature 98.1 F Pulse Rate 62 Respiratory Rate 20 Blood Pressure 98/39 L 97/39 L Pulse Oximetry 100 Oxygen Delivery Room Air Oxygen Flow Rate 08/01/25 16:00 08/01/25 16:15 08/01/25 16:15 Temperature 98.2 F 98.5 F Pulse Rate 62 69 65 Respiratory Rate 18 12 Blood Pressure 139/63 112/48 L Pulse Oximetry 96 100 Oxygen Delivery Oxygen Flow Rate 08/01/25 17:15 08/01/25 18:00 08/01/25 20:00 Temperature 98.5 F Pulse Rate 67 82 71 Respiratory Rate 18 Blood Pressure 108/50 L Pulse Oximetry 100 Oxygen Delivery Oxygen Flow Rate 08/01/25 20:44 08/01/25 22:00 08/02/25 00:00 Temperature 99.5 F Pulse Rate 65 73 61 Respiratory Rate 15 Blood Pressure 131/50 L Pulse Oximetry 100 Oxygen Delivery Oxygen Flow Rate 08/02/25 00:20 08/02/25 02:00 08/02/25 04:00 Temperature 98.2 F Pulse Rate 59 L 71 64 Respiratory Rate 18 Blood Pressure 103/49 L Pulse Oximetry 99 Oxygen Delivery Oxygen Flow Rate 08/02/25 04:16 08/02/25 06:00 08/02/25 08:00 Temperature 97.8 F 98.3 F Pulse Rate 60 70 86 Respiratory Rate 16 18 Blood Pressure 101/41 L 117/50 L Pulse Oximetry 100 100 Oxygen Delivery Oxygen Flow Rate Intake/Output Intake/Output: Intake & Output 07/30/25 07/31/25 08/01/25 08/02/25 23:59 23:59 23:59 23:59 Intake Total 1150 1262.5 Output Total 1025 2050 Balance 125 -787.5 Meds/Results Medications: Active Medications Generic Name Dose Route Start Last Admin Trade Name Freq PRN Reason Stop Dose Admin Acetaminophen 1,000 mg 08/01/25 12:00 08/02/25 06:00 Acetaminophen 500 Mg Tablet PO 1,000 mg Q6HR LIBRA Administration Ascorbic Acid 1,000 mg 08/01/25 18:25 08/01/25 19:00 Ascorbic Acid 500 Mg Tablet PO 1,000 mg [email or web address]@0900 [facility] Administration Docusate Sodium 100 mg 08/01/25 17:00 08/02/25 08:17 Docusate Sodium 100 Mg Capsule PO 100 mg BID [facility] Administration Ferrous Sulfate 325 mg 08/01/25 18:15 08/01/25 19:00 Ferrous Sulfate 325 Mg Tablet PO 325 mg [email or web address]@0900 [facility] Administration Dextrose/Sodium Chloride 1,000 mls @ 125 mls/hr 08/01/25 11:12 08/02/25 02:58 Dextrose 5% Sodium Chloride 0.45% IV CONT 125 mls/hr .Q8H [facility] Administration Ibuprofen 600 mg 08/02/25 06:00 08/02/25 06:01 Ibuprofen 600 Mg Tablet PO 600 mg Q6HR [facility] Administration Naloxone HCl 0.1 mg 08/01/25 11:12 Naloxone Hcl 0.4 Mg/Ml Vial IV PUSH Q2M PRN Respiratory rate less than 10 Ondansetron HCl 4 mg 08/01/25 11:12 08/01/25 14:54 Ondansetron Inj 4 Mg/2 Ml Vial IV PUSH 4 mg Q6H PRN Administration Nausea Oxycodone HCl 5 mg 08/01/25 11:12 08/01/25 19:06 Oxycodone Hcl (*Crx) 5 Mg Tab Ir PO 5 mg Q4H PRN Administration Pain Rated 4-6 Oxycodone HCl 10 mg 08/01/25 11:12 Oxycodone Hcl (*Crx) 5 Mg Tab Ir PO Q6H PRN Pain Rated 7-10 Simethicone 80 mg 08/01/25 12:00 08/02/25 08:17 Simethicone 80 Mg Tab.Chew PO 80 mg TIDWM [facility] Administration Vitamin D 50 mcg 08/02/25 09:00 08/02/25 08:17 Cholecalciferol (Vitamin D3) 25 Mcg (1,000 Units) Tablet PO 50 mcg DAILY [facility] Administration Radiology Results: ITS Impressions Pelvis X-Ray 08/01/25 10:06 IMPRESSION: 1: NO ACUTE BONE OR JOINT ABNORMALITY IDENTIFIED. Chest X-Ray 08/01/25 15:44 IMPRESSION: 1: NO ACUTE CARDIOPULMONARY DISEASE. Labs 08/02/25 06:21 08/02/25 06:21 Labs: Laboratory Results - last 24 hr 08/01/25 08/01/25 08/01/25 08:22 10:14 12:56 WBC RBC Hgb 10.4 L D 10.0 L Hct 31.7 L 29.6 L MCV MCH MCHC RDW Plt Count MPV Immature Gran % (Auto) Neut % (Auto) Lymph % (Auto) [place] % (Auto) Eos % (Auto) Baso % (Auto) Lymph # (Auto) [place] # (Auto) Eos # (Auto) Baso # (Auto) Abs Immat Gran (auto) Absolute Neuts (auto) Absolute Nucleated RBC Nucleated RBC % Sodium Potassium Chloride Carbon Dioxide Anion Gap BUN Creatinine Estim Creat Clear Calc Estimated GFR Glucose Calcium Blood Type O Positive Antibody Screen Negative 08/02/25 08/02/25 00:26 06:21 WBC 15.2 H RBC 3.19 L Hgb 8.9 L 9.6 L Hct 27.4 L 29.0 L MCV 90.9 MCH 30.1 MCHC 33.1 RDW 11.4 L Plt Count 283 MPV 9.4 Immature Gran % (Auto) 0.8 H Neut % (Auto) 78.6 H Lymph % (Auto) 11.5 L [place] % (Auto) 8.7 H Eos % (Auto) 0.1 Baso % (Auto) 0.3 Lymph # (Auto) 1.74 [place] # (Auto) 1.3 H Eos # (Auto) 0.0 Baso # (Auto) 0.0 Abs Immat Gran (auto) 0.12 H Absolute Neuts (auto) 12.0 H Absolute Nucleated RBC 0.000 Nucleated RBC % 0.0 Sodium 137 Potassium 4.5 Chloride 108 H Carbon Dioxide 27 Anion Gap 2 L BUN 7 Creatinine 0.70 Estim Creat Clear Calc 97 Estimated GFR > 60 Glucose 121 H Calcium 8.7 Blood Type Antibody Screen
--- NOTE | 2025-08-02 10:11 | P.PNIM_ITS ---
Progress Note: A&P Assessment and Plan (1) Intra-abdominal bleeding: Code(s): R58 - Hemorrhage, not elsewhere classified Status: Acute Assessment and Plan: Patient underwent a exploratory laparoscopic the with Dr. Castellanos on 08/01 for chronic pelvic pain and menorrhagia. Has previously tried multiple forms of control without success in treating her pain or heavy bleeding. Currently has a Mirena in place. During the procedure, she developed significant bleeding her left psoas muscle. Hemostasis was achieved, hematoma was noted. General surgery additionally in the operating room. See operative notes. Hemoglobin 14.4 -> 10.4, repeated this afternoon and 10.0. Pulses intact on exam. Received 3 L of IV fluids while in the OR and currently on maintenance fluids. Pressure initially soft earlier this afternoon, however has stabilized at 112/48. - if hemodynamic instability occurs, plan for transfusion - repeat H&H overnight, recheck in a.m. - neurovascular checks q.4 - shortness of breath noted post procedure, CXR clear. Likely related to anemia. Will continue to monitor electrolytes and CBC. (2) Iron deficiency anemia: Qualifiers: Iron deficiency anemia type: chronic blood loss Qualified Code(s): D50.0 - Iron deficiency anemia secondary to blood loss (chronic) Code(s): D50.9 - Iron deficiency anemia, unspecified Status: Chronic Assessment and Plan: Patient has history of chronic iron deficiency anemia, likely related to menorrhagia. Hemoglobin decreased from 14 -> 10 postoperatively, see above. - on ferrous sulfate 325 weekly, increase to 325 daily while inpatient (3) Pelvic pain: Qualifiers: Laterality: unspecified laterality Qualified Code(s): R10.20 - Pelvic and perineal pain unspecified side Code(s): R10.20 - Pelvic and perineal pain unspecified side Status: Chronic Assessment and Plan: See history. Per operative notes - normal pelvic anatomy, no evidence of endometriosis, no scar tissue noted. Plan Diet: Clear liquid, advance as tolerated GI Prophylaxis: N/a DVT Prophylaxis: SCDs IV fluids: 3L -> D5/NS 125 mL/hr Lines/Tubes: Peripheral IV, Richards Code Status: Full code Subjective Date/time seen: 08/02/25 10:11 Interval history: [age] year with intraoperative injury to the psoas muscle causing some retroperitoneal bleeding. Stopped in the IMU to speak to the family. Patient is comfortable not in acute distress. Pain control. No shortness of breath or chest pain. Review of Systems Review of Systems: All systems reviewed & are unremarkable except as noted in HPI and below Exam Const: General: comfortable and no acute distress Other: , female, young adult, modestly ill-appearing, fatigued HENMT: Face/Nose/Sinus: Normal nares present Mouth: Yes moist mucous membranes Eyes: General: appearance normal, both eyes and all related structures Sclera: sclerae normal Pupils: Equal, round and reactive pupils present EOM: EOMs intact bilaterally Resp: Effort & Inspection: normal respiratory effort Auscultation: clear to auscultation bilaterally Cardio: Rate: regular rate Rhythm: regular rhythm Other: S1-S2 present without murmur, rub, ectopy GI: Other: Abdomen soft and diffusely tender. Laparoscopic incisions include, well- approximated, no active bleeding or hematoma appreciated. Laparotomy incision well approximated, glued, and no hematoma or erythema. Hypoactive bowel sounds in all quadrants. Skin: General skin exam: no rashes or lesions noted Wounds: no wounds Other: + pallor Neuro: Cranial nerves: Yes Equal, round and reactive pupils present Speech: normal speech Motor exam (neuro): 5/5 motor strength present throughout Sensory Exam: normal sensation Other: A&O x4 Extrem: General: normal to inspection Psych: Mental Status: mental status grossly normal Affect: normal affect Other: Good insight and judgment, pleasant Objective Data Vital Signs Vital Signs: Vital Signs - 24 hr 08/01/25 10:20 08/01/25 10:35 08/01/25 10:50 Temperature 36.2 C L Pulse Rate 85 61 61 Respiratory Rate 18 14 14 Blood Pressure 119/50 L 114/59 L 115/63 Pulse Oximetry 100 97 96 Oxygen Delivery Room Air Room Air Room Air 08/01/25 11:05 08/01/25 11:20 08/01/25 11:35 Temperature 36.2 C L 36.2 C L 36.6 C Pulse Rate 68 88 78 Respiratory Rate 14 16 18 Blood Pressure 107/54 L 111/61 116/48 L Pulse Oximetry 96 97 100 Oxygen Delivery Room Air Room Air 08/01/25 12:00 08/01/25 12:00 08/01/25 12:15 Temperature 36.9 C Pulse Rate 76 64 Respiratory Rate 14 Blood Pressure 108/40 L Pulse Oximetry 98 Oxygen Delivery Room Air 08/01/25 12:45 08/01/25 13:15 08/01/25 14:00 Temperature 36.8 C 36.8 C Pulse Rate 73 67 66 Respiratory Rate 16 14 Blood Pressure 107/59 L 110/36 L Pulse Oximetry 99 99 Oxygen Delivery 08/01/25 15:15 08/01/25 15:16 08/01/25 16:00 Temperature 36.7 C Pulse Rate 62 Respiratory Rate 20 Blood Pressure 98/39 L 97/39 L Pulse Oximetry 100 Oxygen Delivery Room Air 08/01/25 16:00 08/01/25 16:15 08/01/25 16:15 Temperature 36.8 C 36.9 C Pulse Rate 62 69 65 Respiratory Rate 18 12 Blood Pressure 139/63 112/48 L Pulse Oximetry 96 100 Oxygen Delivery 08/01/25 17:15 08/01/25 18:00 08/01/25 20:00 Temperature 36.9 C Pulse Rate 67 82 71 Respiratory Rate 18 Blood Pressure 108/50 L Pulse Oximetry 100 Oxygen Delivery 08/01/25 20:44 08/01/25 22:00 08/02/25 00:00 Temperature 37.5 C Pulse Rate 65 73 61 Respiratory Rate 15 Blood Pressure 131/50 L Pulse Oximetry 100 Oxygen Delivery 08/02/25 00:20 08/02/25 02:00 08/02/25 04:00 Temperature 36.8 C Pulse Rate 59 L 71 64 Respiratory Rate 18 Blood Pressure 103/49 L Pulse Oximetry 99 Oxygen Delivery 08/02/25 04:16 08/02/25 06:00 08/02/25 08:00 Temperature 36.6 C 36.8 C Pulse Rate 60 70 86 Respiratory Rate 16 18 Blood Pressure 101/41 L 117/50 L Pulse Oximetry 100 100 Oxygen Delivery 08/02/25 08:00 08/02/25 08:00 08/02/25 10:00 Temperature Pulse Rate 85 96 Respiratory Rate Blood Pressure Pulse Oximetry Oxygen Delivery Room Air Intake/Output Intake/Output: Intake & Output 07/30/25 07/31/25 08/01/25 08/02/25 23:59 23:59 23:59 23:59 Intake Total 1150 1882.5 Output Total 1025 2050 Balance 125 -167.5 Meds/Results Medications: Active Medications Generic Name Dose Route Start Last Admin Trade Name Sean PRN Reason Stop Dose Admin Acetaminophen 1,000 mg 08/01/25 12:00 08/02/25 06:00 Acetaminophen 500 Mg Tablet PO 1,000 mg Q6HR LIBRA Administration Ascorbic Acid 1,000 mg 08/01/25 18:25 08/01/25 19:00 Ascorbic Acid 500 Mg Tablet PO 1,000 mg [email or web address]@0900 [facility] Administration Docusate Sodium 100 mg 08/01/25 17:00 08/02/25 08:17 Docusate Sodium 100 Mg Capsule PO 100 mg BID LIBRA Administration Ferrous Sulfate 325 mg 08/01/25 18:15 08/01/25 19:00 Ferrous Sulfate 325 Mg Tablet PO 325 mg MoWeFr@0900 [facility] Administration Ibuprofen 600 mg 08/02/25 06:00 08/02/25 06:01 Ibuprofen 600 Mg Tablet PO 600 mg Q6HR LIBRA Administration Naloxone HCl 0.1 mg 08/01/25 11:12 Naloxone Hcl 0.4 Mg/Ml Vial IV PUSH Q2M PRN Respiratory rate less than 10 Ondansetron HCl 4 mg 08/01/25 11:12 08/01/25 14:54 Ondansetron Inj 4 Mg/2 Ml Vial IV PUSH 4 mg Q6H PRN Administration Nausea Oxycodone HCl 5 mg 08/01/25 11:12 08/01/25 19:06 Oxycodone Hcl (*Crx) 5 Mg Tab Ir PO 5 mg Q4H PRN Administration Pain Rated 4-6 Oxycodone HCl 10 mg 08/01/25 11:12 Oxycodone Hcl (*Crx) 5 Mg Tab Ir PO Q6H PRN Pain Rated 7-10 Simethicone 80 mg 08/01/25 12:00 08/02/25 08:17 Simethicone 80 Mg Tab.Chew PO 80 mg TIDWM [facility] Administration Vitamin D 50 mcg 08/02/25 09:00 08/02/25 08:17 Cholecalciferol (Vitamin D3) 25 Mcg (1,000 Units) Tablet PO 50 mcg DAILY [facility] Administration Radiology Results: ITS Impressions Pelvis X-Ray 08/01/25 10:06 IMPRESSION: 1: NO ACUTE BONE OR JOINT ABNORMALITY IDENTIFIED. Chest X-Ray 08/01/25 15:44 IMPRESSION: 1: NO ACUTE CARDIOPULMONARY DISEASE. Labs Labs: Laboratory Results - last 24 hr 08/01/25 08/01/25 08/02/25 10:14 12:56 00:26 WBC RBC Hgb 10.4 L D 10.0 L 8.9 L Hct 31.7 L 29.6 L 27.4 L MCV MCH MCHC RDW Plt Count MPV Immature Gran % (Auto) Neut % (Auto) Lymph % (Auto) [place] % (Auto) Eos % (Auto) Baso % (Auto) Lymph # (Auto) [place] # (Auto) Eos # (Auto) Baso # (Auto) Abs Immat Gran (auto) Absolute Neuts (auto) Absolute Nucleated RBC Nucleated RBC % Sodium Potassium Chloride Carbon Dioxide Anion Gap BUN Creatinine Estim Creat Clear Calc Estimated GFR Glucose Calcium 08/02/25 06:21 WBC 15.2 H RBC 3.19 L Hgb 9.6 L Hct 29.0 L MCV 90.9 MCH 30.1 MCHC 33.1 RDW 11.4 L Plt Count 283 MPV 9.4 Immature Gran % (Auto) 0.8 H Neut % (Auto) 78.6 H Lymph % (Auto) 11.5 L [place] % (Auto) 8.7 H Eos % (Auto) 0.1 Baso % (Auto) 0.3 Lymph # (Auto) 1.74 [place] # (Auto) 1.3 H Eos # (Auto) 0.0 Baso # (Auto) 0.0 Abs Immat Gran (auto) 0.12 H Absolute Neuts (auto) 12.0 H Absolute Nucleated RBC 0.000 Nucleated RBC % 0.0 Sodium 137 Potassium 4.5 Chloride 108 H Carbon Dioxide 27 Anion Gap 2 L BUN 7 Creatinine 0.70 Estim Creat Clear Calc 97 Estimated GFR > 60 Glucose 121 H Calcium 8.7 Quality VTE Prophylaxis VTE prophylaxis: mechanical ordered
--- NOTE | 2025-08-02 12:31 | P.PNGS_ITS ---
Progress Note: A&P Assessment and Plan (1) Intraoperative hemorrhage: Code(s): T81.89XA - Other complications of procedures, not elsewhere classified, initial encounter Status: Acute Assessment and Plan: hemodynamically stable and exam completely benign, continue routine postoperative care, advance diet as tolerated, recheck labs in the morning, encourage out of bed/IS Subjective Subjective Date/Time Seen: 08/02/25 12:31 Interval history: feels okay, just some incisional soreness Review of Systems Review of Systems: All systems reviewed & are unremarkable except as noted in HPI and below Exam Const: General: cooperative, comfortable and no acute distress Resp: Auscultation: clear to auscultation bilaterally Cardio: Rate: regular rate Rhythm: regular rhythm GI: Inspection: normal to inspection, distended and incision GI Palp: Yes abdominal tenderness and Yes Soft to palpation Objective Data Vital Signs Vital Signs: Vital Signs - 24 hr 08/01/25 12:45 08/01/25 13:15 08/01/25 14:00 Temperature 36.8 C 36.8 C Pulse Rate 73 67 66 Respiratory Rate 16 14 Blood Pressure 107/59 L 110/36 L Pulse Oximetry 99 99 Oxygen Delivery 08/01/25 15:15 08/01/25 15:16 08/01/25 16:00 Temperature 36.7 C Pulse Rate 62 Respiratory Rate 20 Blood Pressure 98/39 L 97/39 L Pulse Oximetry 100 Oxygen Delivery Room Air 08/01/25 16:00 08/01/25 16:15 08/01/25 16:15 Temperature 36.8 C 36.9 C Pulse Rate 62 69 65 Respiratory Rate 18 12 Blood Pressure 139/63 112/48 L Pulse Oximetry 96 100 Oxygen Delivery 08/01/25 17:15 08/01/25 18:00 08/01/25 20:00 Temperature 36.9 C Pulse Rate 67 82 71 Respiratory Rate 18 Blood Pressure 108/50 L Pulse Oximetry 100 Oxygen Delivery 08/01/25 20:44 08/01/25 22:00 08/02/25 00:00 Temperature 37.5 C Pulse Rate 65 73 61 Respiratory Rate 15 Blood Pressure 131/50 L Pulse Oximetry 100 Oxygen Delivery 08/02/25 00:20 08/02/25 02:00 08/02/25 04:00 Temperature 36.8 C Pulse Rate 59 L 71 64 Respiratory Rate 18 Blood Pressure 103/49 L Pulse Oximetry 99 Oxygen Delivery 08/02/25 04:16 08/02/25 06:00 08/02/25 08:00 Temperature 36.6 C 36.8 C Pulse Rate 60 70 86 Respiratory Rate 16 18 Blood Pressure 101/41 L 117/50 L Pulse Oximetry 100 100 Oxygen Delivery 08/02/25 08:00 08/02/25 08:00 08/02/25 10:00 Temperature Pulse Rate 85 96 Respiratory Rate Blood Pressure Pulse Oximetry Oxygen Delivery Room Air 08/02/25 12:00 Temperature 36.7 C Pulse Rate 91 Respiratory Rate 20 Blood Pressure 112/51 L Pulse Oximetry 98 Oxygen Delivery Intake/Output Intake/Output: Intake & Output 07/30/25 07/31/25 08/01/25 08/02/25 23:59 23:59 23:59 23:59 Intake Total 1150 1882.5 Output Total 1025 2050 Balance 125 -167.5 Meds/Results Medications: Active Medications Generic Name Dose Route Start Last Admin Trade Name Freq PRN Reason Stop Dose Admin Acetaminophen 1,000 mg 08/01/25 12:00 08/02/25 12:09 Acetaminophen 500 Mg Tablet PO 1,000 mg Q6HR [facility] Administration Ascorbic Acid 1,000 mg 08/01/25 18:25 08/01/25 19:00 Ascorbic Acid 500 Mg Tablet PO 1,000 mg MoWeFr@0900 [facility] Administration Docusate Sodium 100 mg 08/01/25 17:00 08/02/25 08:17 Docusate Sodium 100 Mg Capsule PO 100 mg BID [facility] Administration Ferrous Sulfate 325 mg 08/01/25 18:15 08/01/25 19:00 Ferrous Sulfate 325 Mg Tablet PO 325 mg MoWeFr@0900 [facility] Administration Ibuprofen 600 mg 08/02/25 06:00 08/02/25 12:11 Ibuprofen 600 Mg Tablet PO 600 mg Q6HR [facility] Administration Naloxone HCl 0.1 mg 08/01/25 11:12 Naloxone Hcl 0.4 Mg/Ml Vial IV PUSH Q2M PRN Respiratory rate less than 10 Ondansetron HCl 4 mg 08/01/25 11:12 08/01/25 14:54 Ondansetron Inj 4 Mg/2 Ml Vial IV PUSH 4 mg Q6H PRN Administration Nausea Oxycodone HCl 5 mg 08/01/25 11:12 08/01/25 19:06 Oxycodone Hcl (*Crx) 5 Mg Tab Ir PO 5 mg Q4H PRN Administration Pain Rated 4-6 Oxycodone HCl 10 mg 08/01/25 11:12 Oxycodone Hcl (*Crx) 5 Mg Tab Ir PO Q6H PRN Pain Rated 7-10 Simethicone 80 mg 08/01/25 12:00 08/02/25 12:09 Simethicone 80 Mg Tab.Chew PO 80 mg TIDWM [facility] Administration Vitamin D 50 mcg 08/02/25 09:00 08/02/25 08:17 Cholecalciferol (Vitamin D3) 25 Mcg (1,000 Units) Tablet PO 50 mcg DAILY [facility] Administration Radiology Results: ITS Impressions Pelvis X-Ray 08/01/25 10:06 IMPRESSION: 1: NO ACUTE BONE OR JOINT ABNORMALITY IDENTIFIED. Chest X-Ray 08/01/25 15:44 IMPRESSION: 1: NO ACUTE CARDIOPULMONARY DISEASE. Labs Labs: Laboratory Results - last 24 hr 08/01/25 08/02/25 08/02/25 12:56 00:26 06:21 WBC 15.2 H RBC 3.19 L Hgb 10.0 L 8.9 L 9.6 L Hct 29.6 L 27.4 L 29.0 L MCV 90.9 MCH 30.1 MCHC 33.1 RDW 11.4 L Plt Count 283 MPV 9.4 Immature Gran % (Auto) 0.8 H Neut % (Auto) 78.6 H Lymph % (Auto) 11.5 L [place] % (Auto) 8.7 H Eos % (Auto) 0.1 Baso % (Auto) 0.3 Lymph # (Auto) 1.74 [place] # (Auto) 1.3 H Eos # (Auto) 0.0 Baso # (Auto) 0.0 Abs Immat Gran (auto) 0.12 H Absolute Neuts (auto) 12.0 H Absolute Nucleated RBC 0.000 Nucleated RBC % 0.0 Sodium 137 Potassium 4.5 Chloride 108 H Carbon Dioxide 27 Anion Gap 2 L BUN 7 Creatinine 0.70 Estim Creat Clear Calc 97 Estimated GFR > 60 Glucose 121 H Calcium 8.7
[2025-08-02] MEDS: oxyCODONE HCL (*CRX) 5 MG TAB IR PO (20:02)
[2025-08-03] VITALS (10 sets, daily range): BP systolic 102–126; BP diastolic 37–55; PULSE 61–94; RESP 16–20; TEMP 36.8–37.3; O2SAT 95–100
[2025-08-03 03:56] LABS: Hematocrit 22.8 % (37.0-47.0); Hemoglobin 7.4 g/dL (12.0-15.0); Mean Corpuscular HGB Conc 32.5 g/dl (32-36); Mean Corpuscular Hemoglobin 29.2 pg (26-34); Mean Corpuscular Volume 90.1 fl (80-100); Platelet Count Result 228 k/mm3 (150-375); Red Blood Count 2.53 M/mm3 (4.2-5.4); White Blood Count 10.4 K/mm3 (4.5-10.0)
[2025-08-03 04:22] LABS: Alanine Aminotransferase 14 U/L (6-35); Albumin Level 3.1 g/dL (3.5-5.1); Alkaline Phosphatase 51 U/L (38-126); Anion Gap 1 mmol/L (4-12); Aspartate Amino Transferase 26 U/L (14-36); Bilirubin,Total 0.3 mg/dL (0.2-1.3); Blood Urea Nitrogen 11 mg/dL (7-17); Calcium 8.6 mg/dL (8.4-10.2); Carbon Dioxide 27 mmol/L (22-30); Chloride 108 mmol/L (98-107); Estimated CRCL calculation 85 ml/min; Estimated Glomerular Filt Rate > 60; Glucose 87 mg/dL (65-110); Potassium 4.1 mmol/L (3.4-5.0); Sodium 136 mmol/L (137-145); Total Protein 5.7 g/dL (6.3-8.2)
[2025-08-03] MEDS: oxyCODONE HCL (*CRX) 5 MG TAB IR 10 MG PO (07:56)
[2025-08-03] MEDS: SIMETHICONE 80 MG TAB.CHEW PO ×2 (07:56→11:34)
[2025-08-03] MEDS: ONDANSETRON INJ 4 MG/2 ML VIAL IV PUSH (07:56)
[2025-08-03] MEDS: DOCUSATE SODIUM 100 MG CAPSULE PO (07:56)
[2025-08-03] MEDS: FERROUS SULFATE 325 MG TABLET PO (07:57)
[2025-08-03] MEDS: CHOLECALCIFEROL (VITAMIN D3) 25 MCG (1,000 UNITS) TABLET 50 MCG PO (07:57)
[2025-08-03] MEDS: ASCORBIC ACID 500 MG TABLET 1000 MG PO (08:02)
--- NOTE | 2025-08-03 10:04 | P.PNIM_ITS ---
Progress Note: A&P Assessment and Plan (1) Intra-abdominal bleeding: Code(s): R58 - Hemorrhage, not elsewhere classified Status: Acute Assessment and Plan: Patient underwent a exploratory laparoscopic the with Dr. Castellanos on 08/01 for chronic pelvic pain and menorrhagia. Has previously tried multiple forms of control without success in treating her pain or heavy bleeding. Currently has a Mirena in place. During the procedure, she developed significant bleeding her left psoas muscle. Hemostasis was achieved, hematoma was noted. General surgery additionally in the operating room. See operative notes. Hemoglobin 14.4 -> 10.4, repeated this afternoon and 10.0. Pulses intact on exam. Received 3 L of IV fluids while in the OR and currently on maintenance fluids. Pressure initially soft earlier this afternoon, however has stabilized at 112/48. - if hemodynamic instability occurs, plan for transfusion - repeat H&H overnight, recheck in a.m. - neurovascular checks q.4 - shortness of breath noted post procedure, CXR clear. Likely related to anemia. (2) Iron deficiency anemia: Qualifiers: Iron deficiency anemia type: chronic blood loss Qualified Code(s): D50.0 - Iron deficiency anemia secondary to blood loss (chronic) Code(s): D50.9 - Iron deficiency anemia, unspecified Status: Chronic Assessment and Plan: Patient has history of chronic iron deficiency anemia, likely related to menorrhagia. Monitor hemoglobin. - on ferrous sulfate 325 weekly, increase to 325 daily while inpatient (3) Pelvic pain: Qualifiers: Laterality: unspecified laterality Qualified Code(s): R10.20 - Pelvic and perineal pain unspecified side Code(s): R10.20 - Pelvic and perineal pain unspecified side Status: Chronic Assessment and Plan: See history. Per operative notes - normal pelvic anatomy, no evidence of endometriosis, no scar tissue noted. Plan Diet: Clear liquid, advance as tolerated GI Prophylaxis: N/a DVT Prophylaxis: SCDs IV fluids: 3L -> D5/NS 125 mL/hr Lines/Tubes: Peripheral IV, Richards Code Status: Full code Subjective Date/time seen: 08/03/25 10:04 Interval history: Patient was seen during the morning rounds today. [age] year with intraoperative injury to the psoas muscle causing some retroperitoneal bleeding. Patient is comfortable not in acute distress. Pain controlled No shortness of breath or chest pain. No abdominal pain, nausea, no Review of Systems Review of Systems: All systems reviewed & are unremarkable except as noted in HPI and below Exam Const: General: comfortable and no acute distress Other: , female, young adult, modestly ill-appearing, fatigued HENMT: Face/Nose/Sinus: Normal nares present Mouth: Yes moist mucous membranes Eyes: General: appearance normal, both eyes and all related structures Sclera: sclerae normal Pupils: Equal, round and reactive pupils present EOM: EOMs intact bilaterally Resp: Effort & Inspection: normal respiratory effort Auscultation: clear to auscultation bilaterally Cardio: Rate: regular rate Rhythm: regular rhythm Other: S1-S2 present without murmur, rub, ectopy GI: Other: Abdomen soft and diffusely tender. Laparoscopic incisions include, well-nichelle roximated, no active bleeding or hematoma appreciated. Laparotomy incision well approximated, glued, and no hematoma or erythema. Hypoactive bowel sounds in all quadrants. Skin: General skin exam: no rashes or lesions noted Wounds: no wounds Other: + pallor Neuro: Cranial nerves: Yes Equal, round and reactive pupils present Speech: normal speech Motor exam (neuro): 5/5 motor strength present throughout Sensory Exam: normal sensation Other: A&O x4 Extrem: General: normal to inspection Psych: Mental Status: mental status grossly normal Affect: normal affect Other: Good insight and judgment, pleasant Objective Data Vital Signs Vital Signs: Vital Signs - 24 hr 08/02/25 12:00 08/02/25 12:00 08/02/25 14:00 Temperature 36.7 C Pulse Rate 91 87 74 Respiratory Rate 20 Blood Pressure 112/51 L Pulse Oximetry 98 Oxygen Delivery 08/02/25 15:46 08/02/25 16:00 08/02/25 18:00 Temperature 37.1 C Pulse Rate 81 79 78 Respiratory Rate 20 Blood Pressure 110/48 L Pulse Oximetry 100 Oxygen Delivery 08/02/25 20:00 08/02/25 20:00 08/02/25 20:16 Temperature 37.0 C Pulse Rate 89 86 Respiratory Rate 18 Blood Pressure 117/56 L Pulse Oximetry 99 Oxygen Delivery Room Air 08/02/25 22:00 08/02/25 23:29 08/02/25 23:57 Temperature 37.0 C Pulse Rate 107 H 71 Respiratory Rate 16 Blood Pressure 109/44 L Pulse Oximetry 100 Oxygen Delivery Room Air 08/03/25 00:00 08/03/25 02:00 08/03/25 03:39 Temperature 36.8 C Pulse Rate 70 69 71 Respiratory Rate 16 Blood Pressure 102/37 L Pulse Oximetry 95 Oxygen Delivery 08/03/25 03:45 08/03/25 04:00 08/03/25 05:57 Temperature Pulse Rate 61 65 Respiratory Rate Blood Pressure Pulse Oximetry Oxygen Delivery Room Air 08/03/25 07:39 08/03/25 08:00 08/03/25 08:00 Temperature 37.3 C Pulse Rate 87 74 Respiratory Rate 18 Blood Pressure 118/55 L Pulse Oximetry 100 Oxygen Delivery Room Air Intake/Output Intake/Output: Intake & Output 07/31/25 08/01/25 08/02/25 08/03/25 23:59 23:59 23:59 23:59 Intake Total 1150 2902.5 0 Output Total 1025 2050 Balance 125 852.5 0 Meds/Results Medications: Active Medications Generic Name Dose Route Start Last Admin Trade Name Freq PRN Reason Stop Dose Admin Acetaminophen 1,000 mg 08/01/25 12:00 08/03/25 05:57 Acetaminophen 500 Mg Tablet PO Not Given Q6HR [facility] Ascorbic Acid 1,000 mg 08/01/25 18:25 08/03/25 08:02 Ascorbic Acid 500 Mg Tablet PO 1,000 mg [email or web address] [facility] Administration Docusate Sodium 100 mg 08/01/25 17:00 08/03/25 07:56 Docusate Sodium 100 Mg Capsule PO 100 mg BID [facility] Administration Ferrous Sulfate 325 mg 08/01/25 18:15 08/03/25 07:57 Ferrous Sulfate 325 Mg Tablet PO 325 mg [email or web address] [facility] Administration Ibuprofen 600 mg 08/02/25 06:00 08/03/25 05:23 Ibuprofen 600 Mg Tablet PO Not Given Q6HR [facility] Naloxone HCl 0.1 mg 08/01/25 11:12 Naloxone Hcl 0.4 Mg/Ml Vial IV PUSH Q2M PRN Respiratory rate less than 10 Ondansetron HCl 4 mg 08/01/25 11:12 08/03/25 07:56 Ondansetron Inj 4 Mg/2 Ml Vial IV PUSH 4 mg Q6H PRN Administration Nausea Oxycodone HCl 5 mg 08/01/25 11:12 08/02/25 20:02 Oxycodone Hcl (*Crx) 5 Mg Tab Ir PO 5 mg Q4H PRN Administration Pain Rated 4-6 Oxycodone HCl 10 mg 08/01/25 11:12 08/03/25 07:56 Oxycodone Hcl (*Crx) 5 Mg Tab Ir PO 10 mg Q6H PRN Administration Pain Rated 7-10 Simethicone 80 mg 08/01/25 12:00 08/03/25 07:56 Simethicone 80 Mg Tab.Chew PO 80 mg TIDWM [facility] Administration Vitamin D 50 mcg 08/02/25 09:00 08/03/25 07:57 Cholecalciferol (Vitamin D3) 25 Mcg (1,000 Units) Tablet PO 50 mcg DAILY [facility] Administration Radiology Results: ITS Impressions Pelvis X-Ray 08/01/25 10:06 IMPRESSION: 1: NO ACUTE BONE OR JOINT ABNORMALITY IDENTIFIED. Chest X-Ray 08/01/25 15:44 IMPRESSION: 1: NO ACUTE CARDIOPULMONARY DISEASE. Abdomen/Pelvis CTA 08/03/25 09:23 IMPRESSION: 1. No evidence of hemoperitoneum or active arterial bleed. 2. Free air consistent with postoperative state. 3. Right basilar airspace disease, consider aspiration. Labs Labs: Laboratory Results - last 24 hr 08/03/25 03:26 WBC 10.4 H RBC 2.53 L Hgb 7.4 L Hct 22.8 L MCV 90.1 MCH 29.2 MCHC 32.5 RDW 11.6 Plt Count 228 MPV 9.3 Sodium 136 L Potassium 4.1 Chloride 108 H Carbon Dioxide 27 Anion Gap 1 L BUN 11 Creatinine 0.81 Estim Creat Clear Calc 85 Estimated GFR > 60 Glucose 87 Calcium 8.6 Total Bilirubin 0.3 AST 26 ALT 14 Alkaline Phosphatase 51 Total Protein 5.7 L Albumin 3.1 L Quality VTE Prophylaxis VTE prophylaxis: mechanical ordered
[2025-08-03 10:13] LABS: Hematocrit 24.5 % (37.0-47.0); Hemoglobin 7.9 g/dL (12.0-15.0)
--- NOTE | 2025-08-03 10:55 | P.PNOB_ITS ---
ENGINEERING TEST SPECIALIST - A/P Assessment and plan (1) Pelvic hematoma: Status: Acute Assessment and Plan: - stable, pain improving - meeting post op milestones - CTA this AM ordered for drop in hemoglobin, which is now stable at 7.9; CTA showed no active bleeding or worsening hematoma of the psoas muscle - patient ready for discharge today - follow up in office Postoperative Procedures: Procedures Operation Date: 08/01/25 07:30 Actual Procedure Side Surgeon p Diagnostic Laparoscopy Converted to exploratory Laparotomy Not Applicable Amandeep Castellanos MD Postoperative day: 2 Postoperative status: doing well Postoperative plan: routine post-op care and discharge Time Spent With Patient Time: Total time spent is greater than 50% in coordination of care (as documented) at patient's floor/unit and/or counseling patient: 20 min Time with patient: less than 15 minutes ENGINEERING TEST SPECIALIST- PN:Subj Post-Op Subjective Date/time seen: 08/03/25 10:55 Interval history: POD#2 s/p diagnostic laparoscopy converted to laparotomy due to L psoas muscle injury and retroperitoneal bleeding. Pain improved today. Had some nausea with contrast this AM but now feeling better. Denies dizziness, lightheadedness, palpitations. Tolerating general diet. Voiding without issue. Desires discharge today. Review of Systems 2 Review of Systems: All systems reviewed & are unremarkable except as noted in HPI and below Exam 2 Const: General: comfortable and no acute distress Resp: Effort & Inspection: normal respiratory effort Cardio: Rate: regular rate GI: Inspection: non-distended Other: soft, mild tenderness along incision, no guarding or rebound tenderness Psych: Mental Status: mental status grossly normal ENGINEERING TEST SPECIALIST - PN: Obj Data Vital Signs Vital Signs: Vital Signs - 24 hr 08/02/25 12:00 08/02/25 12:00 08/02/25 14:00 Temperature 98.1 F Pulse Rate 91 87 74 Respiratory Rate 20 Blood Pressure 112/51 L Pulse Oximetry 98 Oxygen Delivery 08/02/25 15:46 08/02/25 16:00 08/02/25 18:00 Temperature 98.8 F Pulse Rate 81 79 78 Respiratory Rate 20 Blood Pressure 110/48 L Pulse Oximetry 100 Oxygen Delivery 08/02/25 20:00 08/02/25 20:00 08/02/25 20:16 Temperature 98.6 F Pulse Rate 89 86 Respiratory Rate 18 Blood Pressure 117/56 L Pulse Oximetry 99 Oxygen Delivery Room Air 08/02/25 22:00 08/02/25 23:29 08/02/25 23:57 Temperature 98.6 F Pulse Rate 107 H 71 Respiratory Rate 16 Blood Pressure 109/44 L Pulse Oximetry 100 Oxygen Delivery Room Air 08/03/25 00:00 08/03/25 02:00 08/03/25 03:39 Temperature 98.2 F Pulse Rate 70 69 71 Respiratory Rate 16 Blood Pressure 102/37 L Pulse Oximetry 95 Oxygen Delivery 08/03/25 03:45 08/03/25 04:00 08/03/25 05:57 Temperature Pulse Rate 61 65 Respiratory Rate Blood Pressure Pulse Oximetry Oxygen Delivery Room Air 08/03/25 07:39 08/03/25 08:00 08/03/25 08:00 Temperature 99.1 F Pulse Rate 87 74 Respiratory Rate 18 Blood Pressure 118/55 L Pulse Oximetry 100 Oxygen Delivery Room Air 08/03/25 10:00 Temperature Pulse Rate 69 Respiratory Rate Blood Pressure Pulse Oximetry Oxygen Delivery Intake/Output Intake/Output: Intake & Output 07/31/25 08/01/25 08/02/25 08/03/25 23:59 23:59 23:59 23:59 Intake Total 1150 2902.5 0 Output Total 1025 2050 Balance 125 852.5 0 Meds/Results Medications: Active Medications Generic Name Dose Route Start Last Admin Trade Name Freq PRN Reason Stop Dose Admin Acetaminophen 1,000 mg 08/01/25 12:00 08/03/25 05:57 Acetaminophen 500 Mg Tablet PO Not Given Q6HR [facility] Ascorbic Acid 1,000 mg 08/01/25 18:25 08/03/25 08:02 Ascorbic Acid 500 Mg Tablet PO 1,000 mg [email or web address]@0900 [facility] Administration Docusate Sodium 100 mg 08/01/25 17:00 08/03/25 07:56 Docusate Sodium 100 Mg Capsule PO 100 mg BID [facility] Administration Ferrous Sulfate 325 mg 08/01/25 18:15 08/03/25 07:57 Ferrous Sulfate 325 Mg Tablet PO 325 mg [email or web address]@0900 [facility] Administration Ibuprofen 600 mg 08/02/25 06:00 08/03/25 05:23 Ibuprofen 600 Mg Tablet PO Not Given Q6HR [facility] Naloxone HCl 0.1 mg 08/01/25 11:12 Naloxone Hcl 0.4 Mg/Ml Vial IV PUSH Q2M PRN Respiratory rate less than 10 Ondansetron HCl 4 mg 08/01/25 11:12 08/03/25 07:56 Ondansetron Inj 4 Mg/2 Ml Vial IV PUSH 4 mg Q6H PRN Administration Nausea Oxycodone HCl 5 mg 08/01/25 11:12 08/02/25 20:02 Oxycodone Hcl (*Crx) 5 Mg Tab Ir PO 5 mg Q4H PRN Administration Pain Rated 4-6 Oxycodone HCl 10 mg 08/01/25 11:12 08/03/25 07:56 Oxycodone Hcl (*Crx) 5 Mg Tab Ir PO 10 mg Q6H PRN Administration Pain Rated 7-10 Simethicone 80 mg 08/01/25 12:00 08/03/25 07:56 Simethicone 80 Mg Tab.Chew PO 80 mg TIDWM [facility] Administration Vitamin D 50 mcg 08/02/25 09:00 08/03/25 07:57 Cholecalciferol (Vitamin D3) 25 Mcg (1,000 Units) Tablet PO 50 mcg DAILY [facility] Administration Radiology Results: ITS Impressions Pelvis X-Ray 08/01/25 10:06 IMPRESSION: 1: NO ACUTE BONE OR JOINT ABNORMALITY IDENTIFIED. Chest X-Ray 08/01/25 15:44 IMPRESSION: 1: NO ACUTE CARDIOPULMONARY DISEASE. Abdomen/Pelvis CTA 08/03/25 09:23 IMPRESSION: 1. No evidence of hemoperitoneum or active arterial bleed. 2. Free air consistent with postoperative state. 3. Right basilar airspace disease, consider aspiration. Labs 08/03/25 09:50 08/03/25 03:26 Labs: Laboratory Results - last 24 hr 08/03/25 08/03/25 03:26 09:50 WBC 10.4 H RBC 2.53 L Hgb 7.4 L 7.9 L Hct 22.8 L 24.5 L MCV 90.1 MCH 29.2 MCHC 32.5 RDW 11.6 Plt Count 228 MPV 9.3 Sodium 136 L Potassium 4.1 Chloride 108 H Carbon Dioxide 27 Anion Gap 1 L BUN 11 Creatinine 0.81 Estim Creat Clear Calc 85 Estimated GFR > 60 Glucose 87 Calcium 8.6 Total Bilirubin 0.3 AST 26 ALT 14 Alkaline Phosphatase 51 Total Protein 5.7 L Albumin 3.1 L
[2025-08-03] MEDS: IBUPROFEN 600 MG TABLET PO (11:34)
[2025-08-03] MEDS: ACETAMINOPHEN 500 MG TABLET 1000 MG PO (11:34)
--- NOTE | 2025-08-03 12:54 | PM.PNGS ---
Progress Note: A&P Assessment and Plan (1) Intraoperative hemorrhage: Code(s): T81.89XA - Other complications of procedures, not elsewhere classified, initial encounter Status: Acute Assessment and Plan: Patient is doing well from a clinical standpoint. Minimal incisional pain. Tolerating diet without any nausea or vomiting. Voiding appropriately. Patient's hemoglobin dropped to 7.4 this morning. CTA was performed and demonstrated no evidence of hemoperitoneum or active arterial bleed. Repeat hemoglobin slightly increased at 7.9. Would have recommended 2 mg of IV Bumex, as well as oral potassium and monitoring overnight, however patient had already been discharged at the time of documentation of this note. Patient will follow-up with CUSTOMER CONTACT REPRESENTATIVE as outpatient. Plan Discussed patient's case and plan of care with Dr. Sims. Subjective Subjective Date/Time Seen: 08/03/25 12:54 Patient reports: no new complaints, feels better and pain is less Interval history: Patient doing well today. Still has some mild incisional pain. Tolerating regular diet without nausea or vomiting. Hemoglobin dipped to 7.4 this morning. CTA ordered. Exam Const: General: comfortable and no acute distress Resp: Effort & Inspection: normal respiratory effort Cardio: Rate: regular rate GI: Inspection: non-distended GI Palp: Yes Soft to palpation and Yes Tenderness to palpation present (GI) (tenderness surrounding incisions) Auscultation: normal bowel sounds Objective Data Vital Signs Vital Signs: Vital Signs - 24 hr 08/02/25 14:00 08/02/25 15:46 08/02/25 16:00 Temperature 98.8 F Pulse Rate 74 81 79 Respiratory Rate 20 Blood Pressure 110/48 L Pulse Oximetry 100 Oxygen Delivery 08/02/25 18:00 08/02/25 20:00 08/02/25 20:00 Temperature Pulse Rate 78 89 Respiratory Rate Blood Pressure Pulse Oximetry Oxygen Delivery Room Air 08/02/25 20:16 08/02/25 22:00 08/02/25 23:29 Temperature 98.6 F 98.6 F Pulse Rate 86 107 H 71 Respiratory Rate 18 16 Blood Pressure 117/56 L 109/44 L Pulse Oximetry 99 100 Oxygen Delivery 08/02/25 23:57 08/03/25 00:00 08/03/25 02:00 Temperature Pulse Rate 70 69 Respiratory Rate Blood Pressure Pulse Oximetry Oxygen Delivery Room Air 08/03/25 03:39 08/03/25 03:45 08/03/25 04:00 Temperature 98.2 F Pulse Rate 71 61 Respiratory Rate 16 Blood Pressure 102/37 L Pulse Oximetry 95 Oxygen Delivery Room Air 08/03/25 05:57 08/03/25 07:39 08/03/25 08:00 Temperature 99.1 F Pulse Rate 65 87 74 Respiratory Rate 18 Blood Pressure 118/55 L Pulse Oximetry 100 Oxygen Delivery 08/03/25 08:00 08/03/25 10:00 08/03/25 11:42 Temperature 99.1 F Pulse Rate 69 89 Respiratory Rate 20 Blood Pressure 126/47 L Pulse Oximetry 99 Oxygen Delivery Room Air 08/03/25 11:58 08/03/25 12:00 Temperature Pulse Rate 94 Respiratory Rate Blood Pressure Pulse Oximetry Oxygen Delivery Room Air Intake/Output Intake/Output: Intake & Output 07/31/25 08/01/25 08/02/25 08/03/25 23:59 23:59 23:59 23:59 Intake Total 1150 2902.5 0 Output Total 1025 2050 Balance 125 852.5 0 Meds/Results Radiology Results: ITS Impressions Pelvis X-Ray 08/01/25 10:06 IMPRESSION: 1: NO ACUTE BONE OR JOINT ABNORMALITY IDENTIFIED. Chest X-Ray 08/01/25 15:44 IMPRESSION: 1: NO ACUTE CARDIOPULMONARY DISEASE. Abdomen/Pelvis CTA 08/03/25 09:23 IMPRESSION: 1. No evidence of hemoperitoneum or active arterial bleed. 2. Free air consistent with postoperative state. 3. Right basilar airspace disease, consider aspiration. Labs Labs: Laboratory Results - last 24 hr 08/03/25 08/03/25 03:26 09:50 WBC 10.4 H RBC 2.53 L Hgb 7.4 L 7.9 L Hct 22.8 L 24.5 L MCV 90.1 MCH 29.2 MCHC 32.5 RDW 11.6 Plt Count 228 MPV 9.3 Sodium 136 L Potassium 4.1 Chloride 108 H Carbon Dioxide 27 Anion Gap 1 L BUN 11 Creatinine 0.81 Estim Creat Clear Calc 85 Estimated GFR > 60 Glucose 87 Calcium 8.6 Total Bilirubin 0.3 AST 26 ALT 14 Alkaline Phosphatase 51 Total Protein 5.7 L Albumin 3.1 L
--- NOTE | 2025-08-07 13:21 | P.DS_ITS ---
DS: Admitting Diagnosis Discharge Date 08/03/25 Admitting Diagnosis pelvic pain DS: Discharge Diagnosis Discharge Diagnosis (1) S/P exploratory laparotomy: Code(s): Z98.890 - Other specified postprocedural states Status: Acute DS: Summary Hospital Course Hospital Course: Patient was admitted s/p planned diagnostic laparoscopy c/b injury to L psoas muscle requiring conversion to exploratory laparotomy. On HD#1 she was tolerating general diet and pain control was improving. On HD#2 she was meeting post op milestones and was ready for discharge. Status at Discharge Functional status at discharge: independent ambulation Overall status at discharge: patient is progressing back to baseline Time Spent with Patient Time attestation: Total time spent providing and/or coordinating discharge services: Discharge Plan Discharge Attending physician on discharge: Marcos Castro Consulting providers: Macie Salgado; Carlos Sims; Jolelen Beal; Clayton Bonilla; Jarred Mcclendon; Kaitlin Servin; Carine Stacy; Horacio Paz; Gary Nick Discharging Clinician: Marcos Castro Patient Disposition: Home Activity: may shower, as tolerated and pelvic rest Diet: as tolerated Patient Language: Hebrew Stand Alone Forms: General Discharge Information Follow-up/Referrals: Amandeep Castellanos MD [Physician, USED EQUIPMENT SALES REPRESENTATIVE] - 1 Week Discharge Medications: Continued Vitamin C (ascorbate calcium) 814 mg/gram powder See Rx Instructions PO WEEKLY Patient Comments: patient takes 3 times a week Rx Instructions: orally weekly; ferrous sulfate [iron] 325 mg (65 mg iron) tablet 325 mg PO WEEKLY Patient Comments: patient takes 3 times a week cholecalciferol (vitamin D3) [D3-2000] 50 mcg (2,000 unit) capsule 50 mcg PO DAILY Date of admission: 08/02/25 17:35 Primary Care Provider: Hamida,Yunier Klein Admitting Provider: Amandeep Castellanos Attending physician on admission: Marcos Castro Condition: Stable
== END 2025-08-03 12:22 | disposition home or self-care (01) ==
LOC: ANHSURGERY 17:38 → ANHIMU 08-03 12:00
PROVIDERS: Internal Medicine; Nurse Practitioner; Student in an Organized Health Care Education/Training Program; Surgery; Admitting Provider Obstetrics & Gynecology; PCP Family Medicine; Visit Provider Obstetrics & Gynecology
PROC: (CPT 49320; principal; 2025-08-01 07:30)
DX: R10.20 Pelvic and perineal pain unspecified side (principal); M96.831 Postprocedural hemorrhage of a musculoskeletal structure following other procedure; Z53.31 Laparoscopic surgical procedure converted to open procedure; M96.821 Accidental puncture and laceration of a musculoskeletal structure during other procedure; M96.840 Postprocedural hematoma of a musculoskeletal structure following a musculoskeletal system procedure; D50.9 Iron deficiency anemia, unspecified
CPT/HCPCS: 49000; 36415; 71045; 72170; 74018; 74174; 80048; 80053; 85014; 85018; 85025; 85027; 86850; 86900; 86901; 93005; A9270; G0378; J0690; J1100; J1885; J2003; J2250; J2405; J2704; J3010; J7120; Q9967